=== PATIENT | female | born 1975 | race Two or more races ===

== ENCOUNTER 2020-07-28 12:52 | Outpatient (REF) | payer MEDICAID, SELFPAY | END 2020-07-28 12:53 | disposition home or self-care (01) | LOC: HO.LAB 12:52 | PROVIDERS: PCP Internal Medicine; Visit Provider Internal Medicine | DX: Z20.828 Contact with and (suspected) exposure to other viral communicable diseases (principal) | CPT/HCPCS: C9803; U0003 ==

== ENCOUNTER 2020-11-17 09:27 | Outpatient (REF) | payer MEDICAID, SELFPAY ==
[2020-11-17 10:45] LABS: MANUAL DIFF FLAG NO
[2020-11-17 10:53] LABS: Basophils Percent Auto 0.5 % (0-2); Eosinophils Absolute Auto 0.1 X10*3/uL (0.0-0.4); Hematocrit 44.6 % (37-47); Hemoglobin 14.5 g/dl (12.0-16.0); Imm Gran Abs Auto 0.01 X10*3/uL (0.00-0.03); Imm Gran Pct Auto 0.2 % (0.0-0.4); Lymphocytes Percent Auto 31.2 % (20-40); Mean Corpuscular HGB Conc 32.5 g/dl (31.0-35.0); Mean Corpuscular Hemoglobin 28.9 pg (27.0-33.0); Mean Platelet Volume 9.7 fL (9.4-12.3); Monocytes Absolute Auto 0.8 X10*3/uL (0.1-1.2); Monocytes Percent Auto 12.2 % (2-11); Neutrophils Absolute Auto 3.5 X10*3/uL (2.0-8.3); Neutrophils Percent Auto 53.9 % (45-73); Platelet Count 258 X10*3/uL (160-400); Red Blood Count 5.01 X10*6/uL (4.20-5.50); Red Cell Distribution Width 13.4 % (11.0-16.0); White Blood Count 6.5 X10*3/uL (4.8-10.8)
[2020-11-17 11:19] LABS: Alanine Aminotransferase 19 U/L (0-31); Albumin Level 4.3 g/dL (3.5-5.0); Alkaline Phosphatase 68 U/L (39-117); Aspartate Amino Transferase 19 U/L (5-31); Bilirubin Total 0.6 mg/dL (0.0-1.0); Blood Urea Nitrogen 20 mg/dL (9-16); C Reactive Protein 0.21 mg/dL (< or = 0.50); Calcium 8.9 mg/dL (8.4-10.2); Estimated Glomerular Filt Rate > 60; Glucose Random 91 mg/dL (60-115); Total Protein 6.6 g/dL (6.5-8.0)
[2020-11-17 11:31] LABS: Anion Gap 12 (12-20); Carbon Dioxide 28 mmol/L (22-29); Chloride 105 mmol/L (96-108); Potassium 4.6 mmol/L (3.3-5.1); Sodium 140 mmol/L (135-145)
[2020-11-17 11:58] LABS: Erythrocyte Sedimentation Rate 2 MM/HR (0-20)
== END 2020-11-17 09:28 | disposition home or self-care (01) ==
LOC: HO.LAB 09:27
PROVIDERS: PCP Internal Medicine; Visit Provider Student in an Organized Health Care Education/Training Program
DX: M05.9 Rheumatoid arthritis with rheumatoid factor, unspecified (principal); F17.210 Nicotine dependence, cigarettes, uncomplicated; Z79.899 Other long term (current) drug therapy
CPT/HCPCS: 36415; 80053; 85025; 85652; 86140; 99212

== ENCOUNTER 2021-05-31 08:59 | Outpatient (REF) | payer MEDICAID, SELFPAY ==
[2021-05-31 09:13] LABS: MANUAL DIFF FLAG NO
[2021-05-31 09:17] LABS: Basophils Percent Auto 0.4 % (0-2); Eosinophils Absolute Auto 0.2 X10*3/uL (0.0-0.4); Eosinophils Percent Auto 2.2 % (0-4); Hematocrit 44.7 % (37-47); Hemoglobin 14.6 g/dl (12.0-16.0); Imm Gran Abs Auto 0.02 X10*3/uL (0.00-0.03); Imm Gran Pct Auto 0.3 % (0.0-0.4); Lymphocytes Absolute Auto 1.8 X10*3/uL (1.2-4.9); Lymphocytes Percent Auto 24.7 % (20-40); Mean Corpuscular HGB Conc 32.7 g/dl (31.0-35.0); Mean Corpuscular Hemoglobin 28.8 pg (27.0-33.0); Mean Corpuscular Volume 88.2 fL (80-98); Mean Platelet Volume 9.2 fL (9.4-12.3); Monocytes Absolute Auto 0.8 X10*3/uL (0.1-1.2); Monocytes Percent Auto 11.4 % (2-11); Neutrophils Absolute Auto 4.5 X10*3/uL (2.0-8.3); Platelet Count 283 X10*3/uL (160-400); Red Blood Count 5.07 X10*6/uL (4.20-5.50); Red Cell Distribution Width 13.7 % (11.0-16.0); White Blood Count 7.3 X10*3/uL (4.8-10.8)
[2021-05-31 09:44] LABS: Alanine Aminotransferase 14 U/L (0-31); Albumin Level 4.2 g/dL (3.5-5.0); Alkaline Phosphatase 81 U/L (39-117); Anion Gap 10 (12-20); Aspartate Amino Transferase 17 U/L (5-31); Bilirubin Total 0.3 mg/dL (0.0-1.0); Blood Urea Nitrogen 14 mg/dL (9-16); C Reactive Protein 0.45 mg/dL (< or = 0.50); Calcium 9.6 mg/dL (8.4-10.2); Carbon Dioxide 29 mmol/L (22-29); Chloride 108 mmol/L (96-108); Estimated Glomerular Filt Rate 60; Glucose Random 94 mg/dL (60-115); Potassium 4.6 mmol/L (3.3-5.1); Sodium 142 mmol/L (135-145); Total Protein 6.6 g/dL (6.5-8.0)
[2021-05-31 10:43] LABS: Erythrocyte Sedimentation Rate 5 MM/HR (0-20)
== END 2021-05-31 09:00 | disposition home or self-care (01) ==
LOC: HO.LAB 08:59
PROVIDERS: PCP Internal Medicine; Visit Provider Student in an Organized Health Care Education/Training Program
DX: M05.9 Rheumatoid arthritis with rheumatoid factor, unspecified (principal); Z79.899 Other long term (current) drug therapy
CPT/HCPCS: 36415; 80053; 85025; 85652; 86140; 99212

== ENCOUNTER 2021-08-05 12:57 | Outpatient (REF) | payer MEDICAID, SELFPAY ==
[2021-08-05 13:06] LABS: MANUAL DIFF FLAG NO
[2021-08-05 13:51] LABS: Basophils Percent Auto 0.2 % (0-2); Eosinophils Absolute Auto 0.2 X10*3/uL (0.0-0.4); Eosinophils Percent Auto 1.9 % (0-4); Hematocrit 44.7 % (37.0-47.0); Hemoglobin 14.3 g/dl (12.0-16.0); Imm Gran Abs Auto 0.02 X10*3/uL (0.00-0.03); Imm Gran Pct Auto 0.2 % (0.0-0.4); Lymphocytes Absolute Auto 2.7 X10*3/uL (1.2-4.9); Lymphocytes Percent Auto 28.1 % (20-40); Mean Corpuscular Hemoglobin 29.1 pg (27.0-33.0); Mean Platelet Volume 9.6 fL (9.4-12.3); Monocytes Absolute Auto 0.7 X10*3/uL (0.1-1.2); Monocytes Percent Auto 7.4 % (2-11); Neutrophils Percent Auto 62.2 % (45-73); Platelet Count 283 X10*3/uL (160-400); Red Blood Count 4.91 X10*6/uL (4.20-5.50); Red Cell Distribution Width 14.5 % (11.0-16.0); White Blood Count 9.6 X10*3/uL (4.8-10.8)
[2021-08-05 14:22] LABS: Alanine Aminotransferase 24 U/L (0-31); Albumin Level 4.5 g/dL (3.5-5.0); Alkaline Phosphatase 83 U/L (39-117); Anion Gap 11 (12-20); Aspartate Amino Transferase 20 U/L (5-31); Bilirubin Total 0.4 mg/dL (0.0-1.0); Blood Urea Nitrogen 14 mg/dL (9-16); C Reactive Protein 0.17 mg/dL (< or = 0.50); Calcium 10.1 mg/dL (8.4-10.2); Carbon Dioxide 29 mmol/L (22-29); Chloride 107 mmol/L (96-108); Estimated Glomerular Filt Rate 58; Glucose Random 122 mg/dL (60-115); Potassium 4.6 mmol/L (3.3-5.1); Sodium 142 mmol/L (135-145); Total Protein 6.9 g/dL (6.5-8.0)
[2021-08-05 14:59] LABS: Erythrocyte Sedimentation Rate 2 MM/HR (0-20)
== END 2021-08-05 12:58 | disposition home or self-care (01) ==
LOC: HO.LAB 12:57
PROVIDERS: PCP Internal Medicine; Visit Provider Nurse Practitioner Family
DX: M05.9 Rheumatoid arthritis with rheumatoid factor, unspecified (principal)
CPT/HCPCS: 36415; 80053; 85025; 85652; 86140

== ENCOUNTER 2022-01-11 12:17 | Outpatient (REF) | payer MEDICAID, SELFPAY ==
[2022-01-11 12:31] LABS: MANUAL DIFF FLAG NO
[2022-01-11 12:54] LABS: Basophils Absolute Auto 0.1 X10*3/uL (0.0-0.2); Basophils Percent Auto 0.6 % (0-2); Eosinophils Absolute Auto 0.1 X10*3/uL (0.0-0.4); Eosinophils Percent Auto 1.6 % (0-4); Hematocrit 44.9 % (37.0-47.0); Hemoglobin 14.8 g/dl (12.0-16.0); Imm Gran Abs Auto 0.03 X10*3/uL (0.00-0.03); Imm Gran Pct Auto 0.4 % (0.0-0.4); Lymphocytes Absolute Auto 2.2 X10*3/uL (1.2-4.9); Lymphocytes Percent Auto 27.3 % (20-40); Mean Corpuscular Hemoglobin 29.4 pg (27.0-33.0); Mean Corpuscular Volume 89.1 fL (80.0-98.0); Mean Platelet Volume 9.6 fL (9.4-12.3); Monocytes Absolute Auto 0.9 X10*3/uL (0.1-1.2); Monocytes Percent Auto 10.9 % (2-11); Neutrophils Absolute Auto 4.7 x10*3/uL (2.0-8.3); Neutrophils Percent Auto 59.2 % (45-73); Platelet Count 281 X10*3/uL (160-400); Red Blood Count 5.04 X10*6/uL (4.20-5.50); Red Cell Distribution Width 14.1 % (11.0-16.0); White Blood Count 7.9 X10*3/uL (4.8-10.8)
[2022-01-11 13:24] LABS: Alanine Aminotransferase 20 U/L (0-31); Albumin Level 4.3 g/dL (3.5-5.0); Alkaline Phosphatase 84 U/L (39-117); Anion Gap 11 (12-20); Aspartate Amino Transferase 19 U/L (5-31); Bilirubin Total 0.6 mg/dL (0.0-1.0); Blood Urea Nitrogen 17 mg/dL (9-16); Calcium 9.7 mg/dL (8.4-10.2); Carbon Dioxide 27 mmol/L (22-29); Chloride 107 mmol/L (96-108); Cholesterol 120 mg/dL; Estimated Glomerular Filt Rate > 60; Glucose Random 93 mg/dL (60-115); HDL Cholesterol 51 mg/dL; LDL Cholesterol Calculated 50 mg/dl; Potassium 4.6 mmol/L (3.3-5.1); Sodium 140 mmol/L (135-145); Total Protein 6.7 g/dL (6.5-8.0); Triglycerides 96 mg/dL
[2022-01-11 13:39] LABS: Erythrocyte Sedimentation Rate 2 MM/HR (0-20)
[2022-01-11 13:45] LABS: Thyroid Stimulating Hormone 0.52 uIU/mL (0.32-4.0)
[2022-01-11 13:49] LABS: Appearance Urine CLEAR; Color Urine YELLOW; Glucose Urine UA NEG (NEG); Leukocyte Esterase Urine NEG (NEG); Nitrite Urine NEG (NEG); Specific Gravity - Urine 1.025 (1.005-1.025); UACC Culture Trigger NO; Urine Blood TRACE (NEG); Urine Ketones NEG (NEG); Urine Protein NEG (NEG-TRACE)
[2022-01-11 14:29] LABS: RBC Urine 0-2 /HPF (0); Squamous Epithelial Cell Urine TRACE /LPF; WBC Urine 0 /HPF (0-4)
== END 2022-01-11 12:18 | disposition home or self-care (01) ==
LOC: HO.LAB 12:17
PROVIDERS: PCP Internal Medicine; Visit Provider Internal Medicine
DX: J45.31 Mild persistent asthma with (acute) exacerbation (principal); M06.9 Rheumatoid arthritis, unspecified; J45.909 Unspecified asthma, uncomplicated; N30.00 Acute cystitis without hematuria; Z72.0 Tobacco use
CPT/HCPCS: 36415; 80053; 80061; 81001; 84443; 85025; 85652

== ENCOUNTER → 2022-01-31 13:38 | Outpatient (REF) | payer MEDICAID, SELFPAY ==
--- NOTE | ~2022-01-31 | XR_ITS ---
EXAMINATION: XR HAND, RIGHT CLINICAL INFORMATION: Rheumatoid arthritis, with positive rheumatoid factor. COMPARISON: None. TECHNIQUE: PA, lateral, and oblique views of the right hand. FINDINGS: Bony alignment and mineralization are normal. There is a slight ulnar minus variance. The proximal and distal carpal rows are intact. There are mild osteoarthritic changes of the third distal interphalangeal joint and of the second, third and fifth proximal interphalangeal joints, with peripheral osteophyte formation and periarticular calcifications. No fracture or dislocation is seen. There is no bony erosive change. The ulnar styloid appears intact. There is mild soft tissue swelling adjacent to the second and third proximal interphalangeal joints. No foreign body is seen. XR/XR hand LT min 3V IMPRESSION: Mild osteoarthritic changes are seen of the right fingers, as detailed. No abnormal bony erosive change is seen. There is no fracture or dislocation noted. EXAMINATION: XR HAND, LEFT CLINICAL INFORMATION: As above. COMPARISON: None. TECHNIQUE: PA, lateral, and oblique views of the left hand. FINDINGS: Bony alignment and mineralization are normal. There is a slight ulnar minus variance. The proximal and distal carpal rows are intact. There are mild osteoarthritic changes of the second, third and fifth distal interphalangeal joints and of the second through fourth proximal interphalangeal joints, with peripheral osteophyte formation and periarticular calcifications noted. No fracture or dislocation is seen. No bony erosive change is seen. The ulnar styloid is intact. There is mild soft tissue swelling adjacent to the second and third proximal interphalangeal joints. No foreign body is seen. IMPRESSION: There are mild osteoarthritic changes, as detailed. No abnormal bone erosion is seen. There is no fracture or dislocation
--- NOTE | ~2022-01-31 | XR_ITS ---
EXAMINATION: XR HAND, RIGHT CLINICAL INFORMATION: Rheumatoid arthritis, with positive rheumatoid factor. COMPARISON: None. TECHNIQUE: PA, lateral, and oblique views of the right hand. FINDINGS: Bony alignment and mineralization are normal. There is a slight ulnar minus variance. The proximal and distal carpal rows are intact. There are mild osteoarthritic changes of the third distal interphalangeal joint and of the second, third and fifth proximal interphalangeal joints, with peripheral osteophyte formation and periarticular calcifications. No fracture or dislocation is seen. There is no bony erosive change. The ulnar styloid appears intact. There is mild soft tissue swelling adjacent to the second and third proximal interphalangeal joints. No foreign body is seen. XR/XR hand RT min 3V IMPRESSION: Mild osteoarthritic changes are seen of the right fingers, as detailed. No abnormal bony erosive change is seen. There is no fracture or dislocation noted. EXAMINATION: XR HAND, LEFT CLINICAL INFORMATION: As above. COMPARISON: None. TECHNIQUE: PA, lateral, and oblique views of the left hand. FINDINGS: Bony alignment and mineralization are normal. There is a slight ulnar minus variance. The proximal and distal carpal rows are intact. There are mild osteoarthritic changes of the second, third and fifth distal interphalangeal joints and of the second through fourth proximal interphalangeal joints, with peripheral osteophyte formation and periarticular calcifications noted. No fracture or dislocation is seen. No bony erosive change is seen. The ulnar styloid is intact. There is mild soft tissue swelling adjacent to the second and third proximal interphalangeal joints. No foreign body is seen. IMPRESSION: There are mild osteoarthritic changes, as detailed. No abnormal bone erosion is seen. There is no fracture or dislocation
--- NOTE | 2022-01-31 13:53 | ECG_ITS ---
Test Reason : MANDI.1 Blood Pressure : / mmHG Vent. Rate : 056 BPM Atrial Rate : 056 BPM P-R Int : 142 ms QRS Dur : 082 ms QT Int : 434 ms P-R-T Axes : 068 066 058 degrees QTc Int : 418 ms Sinus bradycardia Otherwise normal ECG No previous ECGs available Referred By: Cassandra Haney Electronically Signed By:RICK SHANKAR MD
[2022-01-31 14:24] LABS: C Reactive Protein 0.12 mg/dL (< or = 0.50)
== END ==
LOC: HO.CARD 13:38
PROVIDERS: PCP Internal Medicine; Visit Provider Nurse Practitioner Family
DX: R00.1 Bradycardia, unspecified (principal); M05.9 Rheumatoid arthritis with rheumatoid factor, unspecified
CPT/HCPCS: 36415; 73130; 86140; 93005; 99212

== ENCOUNTER 2022-09-21 09:43 | Outpatient (REF) | payer MEDICAID, SELFPAY ==
--- NOTE | ~2022-09-21 | XR_ITS ---
EXAMINATION: XR HIP, LEFT CLINICAL INFORMATION: Pain COMPARISON: None TECHNIQUE: Two views of the left hip. FINDINGS: No acute fracture or dislocation. Joint spaces are maintained. Well corticated osseous fragment lateral to the greater tuberosity. XR/XR hip LT min 2V IMPRESSION: No acute fracture or dislocation. Well corticated osseous fragment lateral to the greater tuberosity could potentially reflect sequelae of remote avulsion injury.
[2022-09-21 10:50] LABS: MANUAL DIFF FLAG NO
[2022-09-21 12:07] LABS: Basophils Percent Auto 0.3 % (0-2); Eosinophils Absolute Auto 0.1 X10*3/uL (0.0-0.4); Eosinophils Percent Auto 1.4 % (0-4); Hematocrit 44.9 % (37.0-47.0); Hemoglobin 14.4 g/dl (12.0-16.0); Imm Gran Abs Auto 0.03 X10*3/uL (0.00-0.03); Imm Gran Pct Auto 0.3 % (0.0-0.4); Lymphocytes Absolute Auto 2.2 X10*3/uL (1.2-4.9); Lymphocytes Percent Auto 23.5 % (20-40); Mean Corpuscular HGB Conc 32.1 g/dl (31.0-35.0); Mean Corpuscular Hemoglobin 28.4 pg (27.0-33.0); Mean Corpuscular Volume 88.6 fL (80.0-98.0); Mean Platelet Volume 9.7 fL (9.4-12.3); Monocytes Percent Auto 10.7 % (2-11); Neutrophils Absolute Auto 5.9 x10*3/uL (2.0-8.3); Neutrophils Percent Auto 63.8 % (45-73); Platelet Count 281 X10*3/uL (160-400); Red Blood Count 5.07 X10*6/uL (4.20-5.50); Red Cell Distribution Width 14.2 % (11.0-16.0); White Blood Count 9.2 X10*3/uL (4.8-10.8)
[2022-09-21 13:21] LABS: Alanine Aminotransferase 11 U/L (0-31); Aspartate Amino Transferase 14 U/L (5-31); C Reactive Protein 0.27 mg/dL (< or = 0.50); Estimated Glomerular Filt Rate > 60
[2022-09-21 14:53] LABS: Erythrocyte Sedimentation Rate 2 MM/HR (0-20)
== END 2022-09-21 09:44 | disposition home or self-care (01) ==
LOC: HO.LAB 09:43
PROVIDERS: PCP Internal Medicine; Visit Provider Nurse Practitioner Family
DX: M05.9 Rheumatoid arthritis with rheumatoid factor, unspecified (principal); R00.1 Bradycardia, unspecified; M25.552 Pain in left hip; Z79.899 Other long term (current) drug therapy
CPT/HCPCS: 36415; 73502; 82565; 84450; 84460; 85025; 85652; 86140; 99212

== ENCOUNTER 2023-11-08 09:52 | Outpatient (REF) | payer MEDICAID, SELFPAY ==
[2023-11-08 10:00] LABS: MANUAL DIFF FLAG NO
[2023-11-08 10:27] LABS: Basophils Percent Auto 0.4 % (0-2); Eosinophils Absolute Auto 0.2 X10*3/uL (0.0-0.4); Hematocrit 46.2 % (37.0-47.0); Hemoglobin 15.4 g/dl (12.0-16.0); Imm Gran Abs Auto 0.02 X10*3/uL (0.00-0.03); Imm Gran Pct Auto 0.2 % (0.0-0.4); Lymphocytes Absolute Auto 2.3 X10*3/uL (1.2-4.9); Lymphocytes Percent Auto 27.2 % (20-40); Mean Corpuscular HGB Conc 33.3 g/dl (31.0-35.0); Mean Corpuscular Hemoglobin 28.6 pg (27.0-33.0); Mean Corpuscular Volume 85.9 fL (80.0-98.0); Mean Platelet Volume 9.2 fL (9.4-12.3); Monocytes Absolute Auto 0.7 X10*3/uL (0.1-1.2); Monocytes Percent Auto 8.3 % (2-11); Neutrophils Absolute Auto 5.3 x10*3/uL (2.0-8.3); Neutrophils Percent Auto 61.9 % (45-73); Platelet Count 305 X10*3/uL (160-400); Red Blood Count 5.38 X10*6/uL (4.20-5.50); Red Cell Distribution Width 13.7 % (11.0-16.0); White Blood Count 8.5 X10*3/uL (4.8-10.8)
[2023-11-08 11:15] LABS: Alanine Aminotransferase 14 U/L (0-31); Albumin Level 4.3 g/dL (3.5-5.0); Alkaline Phosphatase 100 U/L (39-117); Anion Gap 10 (12-20); Aspartate Amino Transferase 19 U/L (5-31); Bilirubin Total 0.4 mg/dL (0.0-1.0); Blood Urea Nitrogen 14 mg/dL (9-16); Calcium 9.6 mg/dL (8.4-10.2); Carbon Dioxide 25 mmol/L (22-29); Chloride 109 mmol/L (96-108); Cholesterol 127 mg/dL (<200); Estimated Glomerular Filt Rate > 60; Glucose Random 103 mg/dL (60-115); HDL Cholesterol 59 mg/dL (>40); LDL Cholesterol Calculated 54 mg/dL (<100); Potassium 4.1 mmol/L (3.3-5.1); Sodium 140 mmol/L (135-145); Triglycerides 74 mg/dL (<150)
[2023-11-10 23:08] LABS: TS Negative Control Passed; TS Panel A 0; TS Panel B 0; TS Positive Control Passed; TSpotTB Negative (Negative)
== END 2023-11-08 09:53 | disposition home or self-care (01) ==
LOC: HO.LAB 09:52
PROVIDERS: PCP Internal Medicine; Visit Provider Internal Medicine
DX: Z00.00 Encounter for general adult medical examination without abnormal findings (principal); Z11.1 Encounter for screening for respiratory tuberculosis; J45.909 Unspecified asthma, uncomplicated; M06.9 Rheumatoid arthritis, unspecified; Z72.0 Tobacco use
CPT/HCPCS: 36415; 80053; 80061; 85025; 86481

== ENCOUNTER 2023-11-10 09:33 | Outpatient (AMB) | payer MEDICAID, SELFPAY ==
[2023-11-10 09:35] VITALS: BP 122/60; PULSE 99; TEMP 36.1; O2SAT 97; BMI 24.2
--- NOTE | 2023-11-10 09:35 | MHC.OFFVIS ---
Intake Vital Signs 11/10/23 09:35 Height 5 ft 4 in Weight 140 lb 14.006 oz BMI 24.2 BP 122/60 Blood Pressure Location Rt brachial Position Sitting Pulse 99 Pulse Source Pulse Oximeter Temp 97 F Temp Source Skin Pulse Oximetry (%) 97 Oxygen Delivery Method Room Air Intake Visit Reasons: RA/CONFIRMED Intake Note: Patient last seen 09/21/22 by Medina, presents today for follow up. c/o generalized myalgias Nurse Specialist Required: No Accompanied by: Self / Same As Patient Allergies No Known Allergies Allergy (Verified 11/10/23 09:40) Medication List - Last Reconciled 11/10/23 by Krupa Chauhan, [employer]- albuterol sulfate 90 mcg/actuation 2 puffs inhalation Q6H PRN fluticasone propionate 110 mcg/actuation (Flovent HFA) 2 puffs inhalation BID folic acid 1 mg PO DAILY naproxen 500 mg PO BID prednisone orally 2 tablets per x 7 days 1 tablet per day for 14 days HPI HPI Comments History of Present Illness Details Ms. Serrano 48yoF is here to reestablish care for her CC+RA. She was started on MTX but says life basically got in the way and everything fell by the way side. She thinks she was not taking the medication incorrectly when she was and denies any side effects. she remembers that she took it for a short while. 09/2022 Mckenna: 47yoF presents for follow-up of seropositive rheumatoid arthritis (RF- CCP+). Last seen in January 2022. Patient was started on methotrexate 4 tabs weekly in February 2020. She states that she took the medication for a month, did not feel much difference so she discontinued it.? She was restarted on Methotrexate November 2020 due to pain and stiffness in her hands, mostly in the PIP joints bilaterally, with morning stiffness lasting 30 minutes and reported swelling. She took the medication for a few weeks then discontinued it. It was recommended she restart Methotrexate for slight synovitis and pain on exam in May 2021. Patient states that she did not take the methotrexate. She is not currently on medication for RA. Patient reports hand swelling and morning stiffness that lasts 5 minutes. She reports sticking of the left index finger which she states is not bothersome. She admits to pain across her DIPs and PIPs in both hands. She reports that her pain is worse with use. She states that she had her hand injected in the past and can not recall if it helped. She reports intense left hip pain x 3 days that started after playing with grandson, running with him while he was on a scooter and using the scooter herself. She denies any injury while playing with grandson and developed pain the next day. Her hip pain is worse with walking and sitting and is felt mostly in the groin. She denies pain prior to 3 days ago except for when she was 15 and jumped from a second floor of a building, she injured both of her hips during this fall. She states she had not tried stretching or heat over the last 3 days. She tried 2 tabs of advil with little effect. She admits to disrupted sleep and depression. She does not have a therapist or mental health provider. She states hat she has not seen anyone for depression before. Patient denies history of iritis, uveitis, inflammatory bowel disease, fever, rash, oral ulcers or Raynaud's. [facility] Medical History (Updated 11/10/23 @ 09:51 by Krupa Chauhan [facility]) Hypovitaminosis D Screening examination for infectious disease Ectopic Depression Fibromyalgia Asthma Rheumatoid arthritis Surgical History H/O laparoscopy Hx of tubal ligation Hx of section Family History Mother Arthritis Diabetes HTN (hypertension) Social History (Updated 11/10/23 @ 09:40 by GABBY Newberry) Household Members: Children Housing: Apartment Alcohol intake: never Patient Tobacco Use Status: Current everyday Tobacco user Cigarettes Per Day: 10 Years Smoked: 25 Substance Use Type: Marijuana Physical Exam Vital Signs: Last Vital Signs Temp 97 F 11/10/23 09:35 Pulse 99 11/10/23 09:35 BP 122/60 11/10/23 09:35 Pulse Ox 97 11/10/23 09:35 Oxygen Delivery Method Room Air 11/10/23 09:35 BMI result Body Mass Index 24.2 APPEARANCE: Patient in no acute distress EYES: no redness, pupils equal and reactive to light, eyelids normal EARS: External ear normal, canal clear and tympanic membrane normal. NOSE/SINUS: Airflow through both nares, no nasal discharge, no bleeding THROAT: Oral mucosa moist, no ulcerations NECK: No thyromegaly or masses, no adenopathy, trachea midline. HEART: Regular rhythm, bradycardic, S1-S2 heard, no murmurs, rubs or gallops. LUNG: Clear to auscultation, respiratory rate regular and nonlabored. ABD: Normal bowel sounds, no organomegaly, masses or tenderness. EXTREMITIES: No edema, no calf tenderness, normal peripheral pulses. NEURO: Oriented and alert x3. No focal weakness. Gait antalgic. SKIN: No inflammatory or neoplastic lesions. Normal color and turgor JOINT EXAM: Cervical Spine:? Full range of motion without pain; no tenderness. Thoracic Spine: No scoliosis.? No tenderness on palpation. Lumbar Spine: Alignment normal.? Pain with flexion and extension. Tenderness to palpation of the lumbar spine and spinal muscles. Hands: LEFT: Normal range of motion. Bony enlargement with tenderness at PIP 2 and 3. Trace swelling, increased warmth or erythema. Able to make a full fist but not tightly and has some weakness to client support administrator strength. No triggering or locking of fingers noted. RIGHT: Bony enlargement and tenderness to palpation of DIP 2 and PIP 2,3. mild erythema, swelling and increased warmth. Able to make a full fist but not tightly and has some weakness in client support administrator strength. No triggering or locking of fingers noted. Wrists: Normal pain-free range of motion without tenderness, swelling, increased warmth or erythema. Elbows: Normal pain-free range of motion with some tenderness, but no swelling, increased warmth or erythema. Shoulders:? Full range of motion without tenderness, swelling, increased warmth or erythema. Hips: LEFT: Pain that radiates to the groin with internal rotation, external rotation, abduction and adduction. No swelling, erythema, ecchymosis or increased warmth noted. Pain also with sitting and walking. RIGHT: Normal pain-free range of motion without tenderness, swelling, increased warmth or erythema. Hip bursa:No tenderness. Knees: LEFT: Normal normal pain-free range of motion without tenderness, swelling, increased warmth or erythema. RIGHT: Normal normal pain-free range of motion without tenderness, swelling, increased warmth or erythema. Ankles: Normal pain-free range of motion without tenderness, swelling, increased warmth or erythema. Feet: Normal pain-free range of motion without tenderness, swelling, increased warmth or erythema. Results Reviewed Results Reviewed: Laboratory Tests 01/02/20 01/02/20 01/02/20 09:23 09:23 09:23 WBC RBC Hgb Hct Plt Count ESR Sodium Potassium BUN Creatinine Random Glucose Calcium AST ALT C-Reactive Protein TSH Rheumatoid Factor < 15.0 Cycl Citrul Peptide IgG 21 H CHRISTEL Titer 1:80 H SS-A/Ro Antibody SS-B/La Antibody Sm (Mathew) Antibody SmRNP Antibodies Scl-70 Scleroderma Ab Double Strand DNA Ab Anti-Centromere Ab Complement C3 Complement C4 Lyme Disease Screen 02/10/20 02/10/20 01/11/22 10:02 10:02 12:30 WBC 7.9 RBC 5.04 Hgb 14.8 Hct 44.9 Plt Count 281 ESR Sodium Potassium BUN Creatinine Random Glucose Calcium AST ALT C-Reactive Protein TSH Rheumatoid Factor Cycl Citrul Peptide IgG CHRISTEL Titer SS-A/Ro Antibody <1.0 SS-B/La Antibody <1.0 Sm (Mathew) Antibody <1.0 SmRNP Antibodies <1.0 Scl-70 Scleroderma Ab <1.0 Double Strand DNA Ab 1 Anti-Centromere Ab <1.0 Complement C3 79 L Complement C4 20 Lyme Disease Screen <0.90 01/11/22 01/11/22 01/31/22 12:30 12:30 14:06 WBC RBC Hgb Hct Plt Count ESR 2 Sodium 140 Potassium 4.6 BUN 17 H Creatinine 0.95 Random Glucose 93 Calcium 9.7 AST 19 ALT 20 C-Reactive Protein 0.12 TSH 0.52 Rheumatoid Factor Cycl Citrul Peptide IgG CHRISTEL Titer SS-A/Ro Antibody SS-B/La Antibody Sm (Mathew) Antibody SmRNP Antibodies Scl-70 Scleroderma Ab Double Strand DNA Ab Anti-Centromere Ab Complement C3 Complement C4 Lyme Disease Screen 01/31/2022 EXAMINATION: XR HAND, RIGHT CLINICAL INFORMATION: Rheumatoid arthritis, with positive rheumatoid factor.? COMPARISON: None. TECHNIQUE: PA, lateral, and oblique views of the right hand. FINDINGS: Bony alignment and mineralization are normal. There is a slight ulnar minus variance. The proximal and distal carpal rows are intact. There are mild osteoarthritic changes of the third distal interphalangeal joint and of the second, third and fifth proximal interphalangeal joints, with peripheral osteophyte formation and periarticular calcifications. No fracture or dislocation is seen. There is no bony erosive change. The ulnar styloid appears intact. There is mild soft tissue swelling adjacent to the second and third proximal interphalangeal joints. No foreign body is seen. XR/XR hand RT min 3V IMPRESSION: Mild osteoarthritic changes are seen of the right fingers, as detailed. No abnormal bony erosive change is seen. There is no fracture or dislocation noted. ? ? EXAMINATION: XR HAND, LEFT ? CLINICAL INFORMATION: As above.? ? COMPARISON: None. ? TECHNIQUE: PA, lateral, and oblique views of the left hand. ? FINDINGS: Bony alignment and mineralization are normal. There is a slight ulnar minus variance. The proximal and distal carpal rows are intact. There are mild osteoarthritic changes of the second, third and fifth distal interphalangeal joints and of the second through fourth proximal interphalangeal joints, with peripheral osteophyte formation and periarticular calcifications noted. No fracture or dislocation is seen. No bony erosive change is seen. The ulnar styloid is intact. There is mild soft tissue swelling adjacent to the second and third proximal interphalangeal joints. No foreign body is seen.? ? IMPRESSION: There are mild osteoarthritic changes, as detailed. No abnormal bone erosion is seen. There is no fracture or dislocation Assessment & Plan Assessment & Plan (1) Seropositive rheumatoid arthritis: Code(s): M05.9 - Rheumatoid arthritis with rheumatoid factor, unspecified (2) Left hip pain: Code(s): M25.552 - Pain in left hip (3) Seropositive rheumatoid arthritis: Comment: patient with out active synovitis on exam September 2022 Code(s): M05.9 - Rheumatoid arthritis with rheumatoid factor, unspecified (4) Hypovitaminosis D: Code(s): E55.9 - Vitamin D deficiency, unspecified Plan Patient with seropositive rheumatoid arthritis (RF- CCP+). She is here for hand pain, swelling and warmth as seen on PE. Previous X-rays of bilateral hands and wrists with mild OA and chest x-ray were normal.? Most recent bilateral hand x-rays from 09/2022 showed degenerative changes, no erosions. Positive response to prednisone taper in the past. Was started on methotrexate in February 2020, November 2020 and May 2021. She self stopped the medication twice, and in prior visit notes it states as it did not improve her symptoms and did not restart it the third time . We will obtain labs and consider to start her on therapy at next visit. Orders: Orders C Reactive Protein Today M05.9 - Rheumatoid arthritis with rheumatoid factor, unspecified Immunoglobulins,IgG IgA IgM Today M05.9 - Rheumatoid arthritis with rheumatoid factor, unspecified Protein Electrophoresis, Serum Today M05.9 - Rheumatoid arthritis with rheumatoid factor, unspecified Hepatitis A,B,C Profile Today M05.9 - Rheumatoid arthritis with rheumatoid factor, unspecified, Z11.9 - Encounter for screening for infectious and parasitic diseases, unspecified Erythrocyte Sedimentation Rate Today M05.9 - Rheumatoid arthritis with rheumatoid factor, unspecified Creatine Kinase Total Today M05.9 - Rheumatoid arthritis with rheumatoid factor, unspecified Uric Acid Today M05.9 - Rheumatoid arthritis with rheumatoid factor, unspecified T Spot TB Today M05.9 - Rheumatoid arthritis with rheumatoid factor, unspecified, Z11.9 - Encounter for screening for infectious and parasitic diseases, unspecified Immunofixation Pnl, Serum Today M05.9 - Rheumatoid arthritis with rheumatoid factor, unspecified Vitamin D 25-OH (D2 and D3) Today E55.9 - Vitamin D deficiency, unspecified, M05.9 - Rheumatoid arthritis with rheumatoid factor, unspecified Medications: New prednisone orally 2 tablets per x 7 days 1 tablet per day for 14 days 30 tabs 0RF M05.9 - Rheumatoid arthritis with rheumatoid factor, unspecified Coding Level of Care Code Est Pt Level 4 (22547) Diagnoses Seropositive rheumatoid arthritis M05.9 Left hip pain M25.552 Hypovitaminosis D E55.9
== END 2023-11-10 10:06 | disposition home or self-care (01) ==
PROVIDERS: PCP Internal Medicine; Visit Provider Nurse Practitioner Family
DX: M05.79 Rheumatoid arthritis with rheumatoid factor of multiple sites without organ or systems involvement (principal); M25.552 Pain in left hip; E55.9 Vitamin D deficiency, unspecified
CPT/HCPCS: 99214

== ENCOUNTER → 2023-11-10 09:33 | Outpatient (BNVA) | payer MEDICAID, SELFPAY | PROVIDERS: PCP Internal Medicine; Visit Provider Nurse Practitioner Family | DX: M05.9 Rheumatoid arthritis with rheumatoid factor, unspecified (principal); M25.552 Pain in left hip; E55.9 Vitamin D deficiency, unspecified | CPT/HCPCS: 99212 ==

== ENCOUNTER 2023-11-10 10:10 | Outpatient (REF) | payer MEDICAID, SELFPAY ==
[2023-11-10 11:37] LABS: C Reactive Protein < 0.10 mg/dL (< or = 0.50); Uric Acid 3.7 mg/dL (2.4-5.7)
[2023-11-10 11:41] LABS: HBc Num1 0.07 S/CO (0.00-0.79); HBsAGNum1 0.36 S/CO (0.00-0.99); Hepatitis A Antibody IgM 0.18 Index (0-0.79); Hepatitis B Core Antibody Nonreactive (Nonreactive); Hepatitis B Surface Antigen Negative (Negative); ~HepC Num1 0.13 S/CO (0.00-0.79); ~Hepatitis A Antibody IgM Nonreactive (Nonreactive); ~Hepatitis B Surface Antibody NONREACTIVE (Nonreactive); ~Hepatitis C Antibody Nonreactive (Nonreactive)
[2023-11-10 12:18] LABS: Erythrocyte Sedimentation Rate 2 MM/HR (0-20)
[2023-11-12 21:54] LABS: TS Negative Control Passed; TS Panel A 1; TS Panel B 0; TS Positive Control Passed; TSpotTB Negative (Negative)
[2023-11-13 21:49] LABS: Prot Elec - Albumin 4.2 g/dL (3.8-4.8); Prot Elec - Alpha1 0.3 g/dL (0.2-0.3); Prot Elec - Alpha2 0.6 g/dL (0.5-0.9); Prot Elec - Beta 1 0.4 g/dL (0.4-0.6); Prot Elec - Beta 2 0.3 g/dL (0.2-0.5); Prot Elec - Gamma 0.8 g/dL (0.8-1.7); Prot Elec - Total Protein 6.5 g/dL (6.1-8.1)
[2023-11-14 13:20] LABS: Vitamin D 25-OH, D2 <4 ng/mL; Vitamin D 25-OH, D3 26 ng/mL; Vitamin D 25-OH, Total 26 ng/mL (30-100)
[2023-11-14 15:32] LABS: IgA 154 mg/dL (47-310); IgG 850 mg/dL (600-1640); IgM 80 mg/dL (50-300)
== END 2023-11-10 10:11 | disposition home or self-care (01) ==
LOC: HO.10HDL 10:10
PROVIDERS: Visit Provider Nurse Practitioner Family
DX: M05.9 Rheumatoid arthritis with rheumatoid factor, unspecified (principal); E55.9 Vitamin D deficiency, unspecified; Z11.9 Encounter for screening for infectious and parasitic diseases, unspecified
CPT/HCPCS: 36415; 82306; 82550; 82784; 84165; 84550; 85652; 86140; 86334; 86481; 86704; 86706; 86709; 86803; 87340; 99212

== ENCOUNTER 2023-11-24 11:28 | Outpatient (AMB) | payer MEDICAID, SELFPAY ==
--- NOTE | 2023-11-24 11:40 | MHC.OFFVIS ---
Vital Signs 11/24/23 11:46 Height 5 ft 4 in Weight 144 lb 6.444 oz BMI 24.8 BP 102/60 Blood Pressure Location Rt brachial Position Sitting Pulse 67 Pulse Source Pulse Oximeter Pulse Oximetry (%) 98 Oxygen Delivery Method Room Air Intake Visit Reasons: SeroPos RA/Do labs Intake Note: Patient last seen 11/10/23, presents today for follow up and test results. Reports worsening dm knee and dm hand pain. Magazine Writer Required: No Accompanied by: Self / Same As Patient Allergies No Known Allergies Allergy (Verified 11/24/23 11:46) HPI Comments Details: Ms. Serrano 48yoF is here to review labs and start treatment for her CC+RA. 11/10/2023 Visit: Ms. Serrano 48yoPedro is here to reestablish care for her CC+RA. She was started on MTX but says life basically got in the way and everything fell by the way side. She thinks she was not taking the medication incorrectly when she was and denies any side effects. she remembers that she took it for a short while. 09/2022 Mckenna: 47yoF presents for follow-up of seropositive rheumatoid arthritis (RF- CCP+). Last seen in January 2022. Patient was started on methotrexate 4 tabs weekly in February 2020. She states that she took the medication for a month, did not feel much difference so she discontinued it.? She was restarted on Methotrexate November 2020 due to pain and stiffness in her hands, mostly in the PIP joints bilaterally, with morning stiffness lasting 30 minutes and reported swelling. She took the medication for a few weeks then discontinued it. It was recommended she restart Methotrexate for slight synovitis and pain on exam in May 2021. Patient states that she did not take the methotrexate. She is not currently on medication for RA. Patient reports hand swelling and morning stiffness that lasts 5 minutes. She reports sticking of the left index finger which she states is not bothersome. She admits to pain across her DIPs and PIPs in both hands. She reports that her pain is worse with use. She states that she had her hand injected in the past and can not recall if it helped. She reports intense left hip pain x 3 days that started after playing with grandson, running with him while he was on a scooter and using the scooter herself. She denies any injury while playing with grandson and developed pain the next day. Her hip pain is worse with walking and sitting and is felt mostly in the groin. She denies pain prior to 3 days ago except for when she was 15 and jumped from a second floor of a building, she injured both of her hips during this fall. She states she had not tried stretching or heat over the last 3 days. She tried 2 tabs of advil with little effect. She admits to disrupted sleep and depression. She does not have a therapist or mental health provider. She states hat she has not seen anyone for depression before. Patient denies history of iritis, uveitis, inflammatory bowel disease, fever, rash, oral ulcers or Raynaud's. [facility] Medical History (Updated 11/24/23 @ 12:05 [facility] Long-term use of immunosuppressant medication Hypovitaminosis D Screening examination for infectious disease Ectopic Depression Fibromyalgia Asthma Rheumatoid arthritis Surgical History H/O laparoscopy Hx of tubal ligation Hx of section Family History Mother Arthritis Diabetes HTN (hypertension) Social History Household Members: Children Housing: Apartment Alcohol intake: never Patient Tobacco Use Status: Current everyday Tobacco user Cigarettes Per Day: 10 Years Smoked: 25 Substance Use Type: Marijuana Review of Systems Const All systems reviewed & are unremarkable except as noted in HPI and below Physical Exam Vital Signs: Last Vital Signs Pulse 67 11/24/23 11:46 BP 102/60 11/24/23 11:46 Pulse Ox 98 11/24/23 11:46 Oxygen Delivery Method Room Air 11/24/23 11:46 BMI result Body Mass Index 24.8 APPEARANCE: Patient in no acute distress EYES: no redness, pupils equal and reactive to light, eyelids normal EARS: External ear normal, canal clear and tympanic membrane normal. NOSE/SINUS: Airflow through both nares, no nasal discharge, no bleeding THROAT: Oral mucosa moist, no ulcerations NECK: No thyromegaly or masses, no adenopathy, trachea midline. HEART: Regular rhythm, bradycardic, S1-S2 heard, no murmurs, rubs or gallops. LUNG: Clear to auscultation, respiratory rate regular and nonlabored. ABD: Normal bowel sounds, no organomegaly, masses or tenderness. EXTREMITIES: No edema, no calf tenderness, normal peripheral pulses. NEURO: Oriented and alert x3. No focal weakness. Gait antalgic. SKIN: No inflammatory or neoplastic lesions. Normal color and turgor JOINT EXAM: Cervical Spine:? Full range of motion without pain; no tenderness. Thoracic Spine: No scoliosis.? No tenderness on palpation. Lumbar Spine: Alignment normal.? Pain with flexion and extension. Tenderness to palpation of the lumbar spine and spinal muscles. Hands: LEFT: Normal range of motion. Bony enlargement with tenderness at PIP 2 and 3. Trace swelling, increased warmth or erythema. Able to make a full fist but not tightly and has some weakness to wearing apparel assembler strength. No triggering or locking of fingers noted. RIGHT: Bony enlargement and tenderness to palpation of DIP 2 and PIP 2,3. mild erythema, swelling and increased warmth. Able to make a full fist but not tightly and has some weakness in wearing apparel assembler strength. No triggering or locking of fingers noted. Wrists: Normal pain-free range of motion without tenderness, swelling, increased warmth or erythema. Elbows: Normal pain-free range of motion with some tenderness, but no swelling, increased warmth or erythema. Shoulders:? Full range of motion without tenderness, swelling, increased warmth or erythema. Hips: LEFT: Pain that radiates to the groin with internal rotation, external rotation, abduction and adduction. No swelling, erythema, ecchymosis or increased warmth noted. Pain also with sitting and walking. RIGHT: Normal pain-free range of motion without tenderness, swelling, increased warmth or erythema. Hip bursa:No tenderness. Knees: LEFT: Normal normal pain-free range of motion without tenderness, swelling, increased warmth or erythema. RIGHT: Normal normal pain-free range of motion without tenderness, swelling, increased warmth or erythema. Ankles: Normal pain-free range of motion without tenderness, swelling, increased warmth or erythema. Feet: Normal pain-free range of motion without tenderness, swelling, increased warmth or erythema. Assessment & Plan Assessment & Plan (1) Hypovitaminosis D: Code(s): E55.9 - Vitamin D deficiency, unspecified Category: Medical (2) Seropositive rheumatoid arthritis: Comment: patient with out active synovitis on exam September 2022 Code(s): M05.9 - Rheumatoid arthritis with rheumatoid factor, unspecified Category: Medical (3) Long-term use of immunosuppressant medication: Code(s): Z79.60 - medical terminologist (current) use of unspecified immunomodulators and immunosuppressants Category: Medical Plan Patient with seropositive rheumatoid arthritis (RF- CCP+). She is here for hand pain, swelling and warmth as seen on PE. Previous X-rays of bilateral hands and wrists with mild OA and chest x-ray were normal.? Most recent bilateral hand x-rays from 09/2022 showed degenerative changes, no erosions. Positive response to prednisone taper in the past. Was started on methotrexate in February 2020, November 2020 and May 2021. She self stopped the medication twice, and in prior visit notes it states as it did not improve her symptoms and did not restart it the third time . #Seropositive RA: Swelling and tenderness with warmth to some hand IP joints on PE. ESR/CRP, IGs within normal range. CCP weakly positive; Uric acid WNL so less likely gout. Will start Methotrexate 15mg QW anf Folic Acid 1 mg QD. Start Prednisone bridge until MTX Ramps up. #Train Caller Use: Obtain CBC, CMP to monitor for cytopenias and toxicity. Discussed side effects to include mouth sores, N/V/D, headaches. Patient to stop medication in the event of a Fever, infection, surgery or [id number] wound. #Low Vitamin D; Start Vit franklin D cholecalciferol 50 mcg qd. Follow-up in 8 weeks 30 minutes spent reviewing chart, reviewing labs and discussing treatment plan and document Orders: Orders Comprehensive Met. Panel 11/24/23 Z79.60 - group home (current) use of unspecified immunomodulators and immunosuppressants, M05.9 - Rheumatoid arthritis with rheumatoid factor, unspecified C Reactive Protein 11/24/23 Z79.60 - group home (current) use of unspecified immunomodulators and immunosuppressants, M05.9 - Rheumatoid arthritis with rheumatoid factor, unspecified Complete Blood Count Auto Diff 11/24/23 Z79.60 - medical terminologist (current) use of unspecified immunomodulators and immunosuppressants, M05.9 - Rheumatoid arthritis with rheumatoid factor, unspecified Erythrocyte Sedimentation Rate 11/24/23 Z79.60 - group home (current) use of unspecified immunomodulators and immunosuppressants, M05.9 - Rheumatoid arthritis with rheumatoid factor, unspecified Medications: New methotrexate sodium 15 mg (6 x 2.5 mg) PO QWEEK 72 tabs 0RF M05.9 - Rheumatoid arthritis with rheumatoid factor, unspecified folic acid 1 mg PO DAILY 90 tabs 2RF Z79.60 - medical terminologist (current) use of unspecified immunomodulators and immunosuppressants Changed From prednisone orally 2 tablets per x 7 days 1 tablet per day for 14 days 30 tabs 0RF M05.9 - Rheumatoid arthritis with rheumatoid factor, unspecified To prednisone orally 2 tablets per x 14 days 1 tablet per day for 14 days 45 tabs 0RF M05.9 - Rheumatoid arthritis with rheumatoid factor, unspecified Coding Level of Care Code Est Pt Level 4 (39132) Complex EM visit Add On G2211 Diagnoses Hypovitaminosis D E55.9 Seropositive rheumatoid arthritis M05.9 Long-term use of immunosuppressant medication Z79.60 Time Spent (min) 30 Comment
[2023-11-24 11:46] VITALS: BP 102/60; PULSE 67; O2SAT 98; BMI 24.8
== END 2023-11-24 12:07 | disposition home or self-care (01) ==
PROVIDERS: PCP Internal Medicine; Visit Provider Nurse Practitioner Family
DX: M05.79 Rheumatoid arthritis with rheumatoid factor of multiple sites without organ or systems involvement (principal); E55.9 Vitamin D deficiency, unspecified; Z79.60 Long term (current) use of unspecified immunomodulators and immunosuppressants
CPT/HCPCS: 99214; G2211

== ENCOUNTER → 2023-11-24 11:28 | Outpatient (BNVA) | payer MEDICAID, SELFPAY | PROVIDERS: PCP Internal Medicine; Visit Provider Nurse Practitioner Family | DX: M05.9 Rheumatoid arthritis with rheumatoid factor, unspecified (principal); E55.9 Vitamin D deficiency, unspecified; Z79.60 Long term (current) use of unspecified immunomodulators and immunosuppressants | CPT/HCPCS: 99212 ==

== ENCOUNTER 2024-01-16 11:47 | Outpatient (REF) | payer MEDICAID, SELFPAY ==
--- NOTE | ~2024-01-16 | XR_ITS ---
EXAMINATION: XR SACRUM AND COCCYX CLINICAL INFORMATION: Sacrococcygeal pain COMPARISON: Hip radiographs same date TECHNIQUE: 2 views of the sacrum and 2 views of the coccyx were obtained. FINDINGS: There are no fractures. No bone, joint or soft tissue abnormality is demonstrated. The SI joints appear symmetric. XR/XR sacrum coccyx min 2V IMPRESSION: Unremarkable examination.
--- NOTE | ~2024-01-16 | XR_ITS ---
EXAMINATION: XR BILATERAL HIPS WITH AP PELVIS CLINICAL INFORMATION: Hip pain COMPARISON: 09/21/2022 TECHNIQUE: AP view of the pelvis and single views of each hip were obtained. FINDINGS: No fracture. Hip joint spaces are maintained. Alignment is anatomic. Sacroiliac joints and pubic symphysis are normal. No abnormal soft tissue calcifications. Slight deformity to the left superior pubic ramus appears chronic. XR/XR hips [place] min 3V IMPRESSION: Normal pelvis and hips.
[2024-01-16 12:46] LABS: Basophils Percent Auto 0.4 % (0-2); Eosinophils Absolute Auto 0.1 X10*3/uL (0.0-0.4); Eosinophils Percent Auto 1.3 % (0-4); Hematocrit 45.6 % (37.0-47.0); Hemoglobin 14.7 g/dl (12.0-16.0); Imm Gran Abs Auto 0.03 X10*3/uL (0.00-0.03); Imm Gran Pct Auto 0.3 % (0.0-0.4); Lymphocytes Absolute Auto 2.3 X10*3/uL (1.2-4.9); Lymphocytes Percent Auto 23.8 % (20-40); MANUAL DIFF FLAG NO; Mean Corpuscular HGB Conc 32.2 g/dl (31.0-35.0); Mean Corpuscular Hemoglobin 28.9 pg (27.0-33.0); Mean Corpuscular Volume 89.6 fL (80.0-98.0); Mean Platelet Volume 9.4 fL (9.4-12.3); Monocytes Percent Auto 10.9 % (2-11); Neutrophils Percent Auto 63.3 % (45-73); Platelet Count 303 X10*3/uL (160-400); Red Blood Count 5.09 X10*6/uL (4.20-5.50); Red Cell Distribution Width 14.8 % (11.0-16.0); White Blood Count 9.5 X10*3/uL (4.8-10.8)
[2024-01-16 13:33] LABS: Erythrocyte Sedimentation Rate 6 MM/HR (0-20)
[2024-01-16 13:39] LABS: Alanine Aminotransferase 11 U/L (0-31); Albumin Level 4.6 g/dL (3.5-5.0); Alkaline Phosphatase 94 U/L (39-117); Anion Gap 13 (12-20); Aspartate Amino Transferase 15 U/L (5-31); Bilirubin Total 0.5 mg/dL (0.0-1.0); Blood Urea Nitrogen 14 mg/dL (9-16); C Reactive Protein 0.95 mg/dL (< or = 0.50); Calcium 10.3 mg/dL (8.4-10.2); Carbon Dioxide 29 mmol/L (22-29); Chloride 107 mmol/L (96-108); Estimated Glomerular Filt Rate > 60; Glucose Random 97 mg/dL (60-115); Potassium 4.6 mmol/L (3.3-5.1); Sodium 144 mmol/L (135-145); Total Protein 7.2 g/dL (6.5-8.0)
[2024-01-19 15:34] LABS: Cyclic Citrullinated Peptide <16 UNITS
== END 2024-01-16 11:48 | disposition home or self-care (01) ==
LOC: HO.XRAY 11:47
PROVIDERS: Absent Provider Internal Medicine; PCP Internal Medicine; Visit Provider Nurse Practitioner Family
DX: M05.9 Rheumatoid arthritis with rheumatoid factor, unspecified (principal); M25.552 Pain in left hip; M25.551 Pain in right hip; M53.3 Sacrococcygeal disorders, not elsewhere classified; Z79.60 Long term (current) use of unspecified immunomodulators and immunosuppressants
CPT/HCPCS: 36415; 72220; 73522; 80053; 85025; 85652; 86140; 86200

== ENCOUNTER 2024-10-29 08:33 | Outpatient (REF) | payer MEDICAID, SELFPAY ==
[2024-10-29 08:46] LABS: MANUAL DIFF FLAG NO
[2024-10-29 09:35] LABS: Basophils Absolute Auto 0.1 X10*3/uL (0.0-0.2); Basophils Percent Auto 0.7 % (0-2); Eosinophils Absolute Auto 0.2 X10*3/uL (0.0-0.4); Eosinophils Percent Auto 2.4 % (0-4); Hematocrit 47.3 % (37.0-47.0); Hemoglobin 15.4 g/dl (12.0-16.0); Imm Gran Abs Auto 0.01 X10*3/uL (0.00-0.03); Imm Gran Pct Auto 0.1 % (0.0-0.4); Lymphocytes Absolute Auto 2.2 X10*3/uL (1.2-4.9); Lymphocytes Percent Auto 29.7 % (20-40); Mean Corpuscular HGB Conc 32.6 g/dl (31.0-35.0); Mean Corpuscular Hemoglobin 28.7 pg (27.0-33.0); Mean Corpuscular Volume 88.2 fL (80.0-98.0); Mean Platelet Volume 9.6 fL (9.4-12.3); Monocytes Absolute Auto 0.7 X10*3/uL (0.1-1.2); Monocytes Percent Auto 8.8 % (2-11); Neutrophils Absolute Auto 4.3 x10*3/uL (2.0-8.3); Neutrophils Percent Auto 58.3 % (45-73); Platelet Count 271 X10*3/uL (160-400); Red Blood Count 5.36 X10*6/uL (4.20-5.50); Red Cell Distribution Width 13.7 % (11.0-16.0); White Blood Count 7.4 X10*3/uL (4.8-10.8)
[2024-10-29 09:56] LABS: Alanine Aminotransferase 24 U/L (0-31); Albumin Level 4.2 g/dL (3.5-5.0); Alkaline Phosphatase 99 U/L (39-117); Anion Gap 9 (12-20); Aspartate Amino Transferase 24 U/L (5-31); Bilirubin Total 0.3 mg/dL (0.0-1.0); Blood Urea Nitrogen 15 mg/dL (9-16); Calcium 8.9 mg/dL (8.4-10.2); Carbon Dioxide 26 mmol/L (22-29); Chloride 113 mmol/L (96-108); Cholesterol 130 mg/dL (<200); Estimated Glomerular Filt Rate > 60; Glucose Random 102 mg/dL (60-115); HDL Cholesterol 62 mg/dL (>40); LDL Cholesterol Calculated 55 mg/dL (<100); Potassium 4.4 mmol/L (3.3-5.1); Sodium 144 mmol/L (135-145); Total Protein 6.9 g/dL (6.5-8.0); Triglycerides 69 mg/dL (<150)
[2024-10-29 10:11] LABS: Erythrocyte Sedimentation Rate 2 MM/HR (0-20)
[2024-10-29 10:24] LABS: Rheumatoid Factor < 13.0 IU/mL (<15.0)
[2024-10-31 07:14] LABS: Cyclic Citrullinated Peptide 19 UNITS
== END 2024-10-29 08:34 | disposition home or self-care (01) ==
LOC: HO.LAB 08:33
PROVIDERS: PCP Internal Medicine; Visit Provider Internal Medicine
DX: Z00.00 Encounter for general adult medical examination without abnormal findings (principal); F32.9 Major depressive disorder, single episode, unspecified; M06.9 Rheumatoid arthritis, unspecified; Z72.0 Tobacco use
CPT/HCPCS: 36415; 80053; 80061; 85025; 85652; 86200; 86431

== ENCOUNTER 2025-03-18 08:26 | Outpatient (REF) | payer MEDICAID, SELFPAY ==
[2025-03-18 13:13] LABS: MANUAL DIFF FLAG NO
[2025-03-18 13:15] LABS: Appearance Urine Cloudy; Glucose Urine UA Negative (Negative); PH 5.5 (5.0-9.0); Specific Gravity - Urine 1.020 (1.005-1.025); UMIC TRIGGER UACC YES
[2025-03-18 13:51] LABS: Hematocrit 45.1 % (37.0-47.0); Hemoglobin 14.2 g/dl (12.0-16.0); Imm Gran Abs Auto 0.03 X10*3/uL (0.00-0.03); Imm Gran Pct Auto 0.4 % (0.0-0.4); Lymphocytes Absolute Auto 1.8 X10*3/uL (1.2-4.9); Mean Corpuscular HGB Conc 31.5 g/dl (31.0-35.0); Mean Corpuscular Hemoglobin 27.8 pg (27.0-33.0); Mean Corpuscular Volume 88.4 fL (80.0-98.0); NRBC Abs Auto 0.000 X10*3/uL (0.0-0.012); NRBC Pct Auto 0.0 /100WBC (0.0-0.2); Platelet Count 283 X10*3/uL (160-400); Red Blood Count 5.10 X10*6/uL (4.20-5.50); White Blood Count 7.7 X10*3/uL (4.8-10.8)
[2025-03-18 14:01] LABS: Alanine Aminotransferase 16 U/L (0-31); Aspartate Amino Transferase 24 U/L (5-31); Estimated Glomerular Filt Rate > 60
[2025-03-18 14:47] LABS: Protein/Creatinine Ratio, Ur 0.08 (<0.2); Total Protein Urine Random 12 mg/dL (<12)
[2025-03-19 23:09] LABS: SM/Ribonucleoprotein Ab <1.0 NEG AI (<1.0 NEG); Smith Protein <1.0 NEG AI (<1.0 NEG)
== END 2025-03-18 08:27 | disposition home or self-care (01) ==
LOC: HO.HKASLDS 08:26
PROVIDERS: PCP Internal Medicine; Visit Provider Internal Medicine Rheumatology
DX: M17.0 Bilateral primary osteoarthritis of knee (principal); M05.9 Rheumatoid arthritis with rheumatoid factor, unspecified; M77.11 Lateral epicondylitis, right elbow; M77.02 Medial epicondylitis, left elbow; M65.322 Trigger finger, left index finger; R76.8 Other specified abnormal immunological findings in serum; M25.561 Pain in right knee; R76.0 Raised antibody titer; Z79.1 Long term (current) use of non-steroidal anti-inflammatories (NSAID)
CPT/HCPCS: 36415; 81001; 82565; 82570; 84156; 84450; 84460; 85025; 85652; 86140; 86160; 86225; 86235; 86431; 99212

== ENCOUNTER 2025-03-18 08:26 | Outpatient (AMB) | payer MEDICAID, SELFPAY ==
--- NOTE | 2025-03-18 08:29 | MHC.OFFVIS ---
Vital Signs 03/18/25 08:30 Height 5 ft 4.8 in Weight 136 lb 4 oz BMI 22.8 BP 120/80 Blood Pressure Location Lt brachial Position Sitting Pulse 52 Pulse Oximetry (%) 99 Oxygen Delivery Method Room Air Intake Visit Reasons: RA Intake Note: Patient presents for Hypovitaminosis. Accompanied by: self Allergies No Known Allergies Allergy (Verified 03/18/25 08:30) HPI HPI RA: Details: She has constant pain in hands. Left 2nd fingers triggering. In the past she tried meloxicam without benefit. She was on methotrexate but took all the pills all at once. She did not follow up with Rheumatology after appointment in November 2023. MS 3 minutes Left 2nd finger and left elbow gets stuck. She has a lot of pain in her forearms. R knee anterior pain with flexion. She has difficulty getting up. [facility] Medical History Long-term use of immunosuppressant medication Hypovitaminosis D Screening examination for infectious disease Ectopic Depression Fibromyalgia Asthma Rheumatoid arthritis Surgical History H/O laparoscopy Hx of tubal ligation Hx of section Family History Mother Arthritis Diabetes HTN (hypertension) Social History Household Members: Children Housing: Apartment Alcohol intake: never Patient Tobacco Use Status: Current everyday Tobacco user Cigarettes Per Day: 10 Years Smoked: 25 Substance Use Type: Marijuana Physical Exam Vital Signs: Last Vital Signs Pulse 52 03/18/25 08:30 BP 120/80 03/18/25 08:30 Pulse Ox 99 03/18/25 08:30 Oxygen Delivery Method Room Air 03/18/25 08:30 BMI result Body Mass Index 22.8 Const Other: General: Comfortable CVS: RRR Respiratory: clear to auscultation bilaterally. Good respiratory effort Skin: No lesions seen MSK: Tender to palpate right 2nd and 5th PIP with Enoc's nodes present. She also has multiple Heberden nodes. Tender left 2nd to 3rd MCP, PIPs. No synovitis. Tender left medial epicondyle with pain with resisted wrist flexion. Tender right lateral epicondyle without pain with resisted wrist extension. Normal range of motion of upper extremities and lower extremities. Assessment & Plan Assessment & Plan (1) Polyarthritis: Comment: On exam she does not have synovitis but has clinical findings of osteoarthritis. She has multiple small joints that are tender. I will further pursue inflammatory arthritis workup with labs and x-rays. Rheumatology history: She was treated for rheumatoid arthritis presenting with synovitis in September 2022 with methotrexate 11/2023 but patient took all the pills at once. Lost to follow up. Labs from 2019 reveal low titer positive CHRISTEL 1:80 and low C3. Anti CCP antibody negative. Code(s): M13.0 - Polyarthritis, unspecified Category: Medical Plan: Labs ordered Bilateral hands and feet x-ray ordered Start celecoxib 200 mg twice a day Return to clinic in 3-4 months (2) Positive CHRISTEL (antinuclear antibody): Code(s): R76.8 - Other specified abnormal immunological findings in serum Category: Medical Plan: See above (3) Trigger finger, left index finger: Code(s): M65.322 - Trigger finger, left index finger Category: Medical Plan: OT ordered with splinting Return to clinic in 3-4 months (4) Medial epicondylitis, left elbow: Code(s): M77.02 - Medial epicondylitis, left elbow Category: Medical Plan: Elbow support band prescription given to patient OT ordered Start celecoxib 200 mg twice a day Return to clinic in 3-4 months (5) Right lateral epicondylitis: Code(s): M77.11 - Lateral epicondylitis, right elbow Category: Medical Plan: Elbow support band prescription given to patient OT ordered Start celecoxib 200 mg twice a day Return to clinic in 3-4 months Orders: Orders XR knee RT 2V Today M17.0 - Bilateral primary osteoarthritis of knee OT Evaluation and Treatment Today M65.322 - Trigger finger, left index finger, M77.02 - Medial epicondylitis, left elbow, M77.11 - Lateral epicondylitis, right elbow XR Foot Eder 3V Today M05.9 - Rheumatoid arthritis with rheumatoid factor, unspecified Complete Blood Count Auto Diff Today R76.0 - Raised antibody titer, R76.8 - Other specified abnormal immunological findings in serum UA ClnCatch+Micro w/rflx Cult Today R76.0 - Raised antibody titer, R76.8 - Other specified abnormal immunological findings in serum Protein Creatinine Ratio, Ur Today R76.0 - Raised antibody titer, R76.8 - Other specified abnormal immunological findings in serum Erythrocyte Sedimentation Rate Today R76.0 - Raised antibody titer, R76.8 - Other specified abnormal immunological findings in serum Complement C3 Today R76.0 - Raised antibody titer, R76.8 - Other specified abnormal immunological findings in serum Sm Sm/ELECTRICAL REPAIRER Antibodies Today R76.0 - Raised antibody titer, R76.8 - Other specified abnormal immunological findings in serum XR Hand Bilat min 3v Today M05.9 - Rheumatoid arthritis with rheumatoid factor, unspecified Alanine Aminotransferase Today Z79.1 - senior care (current) use of non-steroidal anti-inflammatories (NSAID) Aspartate Amino Transferase Today Z79.1 - senior care (current) use of non-steroidal anti-inflammatories (NSAID) Creatinine Today Z79.1 - buttermaker continuous churn (current) use of non-steroidal anti-inflammatories (NSAID) PT Evaluation and Treatment Today M25.561 - Pain in right knee Rheumatoid Factor Today R76.8 - Other specified abnormal immunological findings in serum C Reactive Protein Today R76.0 - Raised antibody titer, R76.8 - Other specified abnormal immunological findings in serum Anti DNA DS Antibody Today R76.0 - Raised antibody titer, R76.8 - Other specified abnormal immunological findings in serum Complement C4 Today R76.0 - Raised antibody titer, R76.8 - Other specified abnormal immunological findings in serum Medications: New celecoxib Take with food 200 mg PO BID 60 caps 2RF arm brace Bilateral elbow support band Dx: left lateral epicondylitis, right medial epicondylitis 2 ea 0RF Coding Level of Care Code Est Pt Level 4 (77817) Complex EM visit Add On G2211 Diagnoses Polyarthritis M13.0 Positive CHRISTEL (antinuclear antibody) R76.8 Trigger finger, left index finger M65.322 Medial epicondylitis, left elbow M77.02 Right lateral epicondylitis M77.11 Time Spent (min) 30
[2025-03-18 08:30] VITALS: BP 120/80; PULSE 52; O2SAT 99; BMI 22.8
--- OUTSIDE RECORDS SUMMARY | 2025-03-18 08:36 | XMS_ITS | Clinical Summary ---
Author Organization [facility] Address [address] [place] [address] Phone Care Team Providers Care Wood Boat Builder Supervisor Name Role Phone Arleen Rosas MD Primary Care Provider [phone] Social History Tobacco Use Types Packs/Day Years Used Date Smoking Tobacco: Never Assessed Comments No Sex and Gender Information Value Date Recorded Sex Assigned at Not on file Legal Sex Female 12:47 PM EST Gender Identity Not on file Sexual Orientation Not on file Obstetrics History Para Term AB IAB SAB Ectopic Multiple Livin g Live Births 4 Last Filed Vital Signs Vital Sign Reading Time Taken Comments Blood Pressure - - Pulse - - Temperature - - Respiratory Rate - - Oxygen Saturation - - Inhaled Oxygen Concentration - - Weight 62.1 kg (137 lb) 07/08/2024 8:46 AM EST Height 162.6 cm (5' 4 ) 07/08/2024 8:46 AM EST Body Mass Index 23.52 07/08/2024 8:46 AM EST Plan of Treatment Health Maintenance Due Date Last Done Comments DTaP,Tdap,and Td Vaccines (1 - Tdap) 1992 Hepatitis B Vaccines (1 of 3 - 19+ 3-dose series) 1992 Pneumococcal Vaccine: 50+ Years (1 of 2 - PCV) 1992 Cervical Cancer Screening: Pap Smear 1994 Colorectal Cancer Screening: Colonoscopy 07/12/2022 HIV Screening 07/12/2022 Hepatitis C Screening 07/12/2022 Social Influencers of Health Screening 07/12/2022 Zoster Vaccines (1 of 2) 2023 COVID-19 Vaccine ( - 2024-25 season) 2024 Depression Screening 08/14/2024 Influenza Vaccine (#1) 2025 Breast Cancer Screening 07/08/2026 07/08/20, 07/05/2023, 03/12/2022, Additional history exists HIB Vaccines Aged Out No longer eligi ble based on patient's age to complete this topic HPV Vaccines Aged Out No longer eligi ble based on patient's age to complete this topic Hepatitis A Vaccines Aged Out No long er eligible based on patient's age to complete this topic IPV Vaccines Aged Out No longer eligi ble based on patient's age to complete this topic MMR Vaccines Aged Out No longer eligi ble based on patient's age to complete this topic Meningococcal ACWY Vaccine Aged Out N o longer eligible based on patient's age to complete this topic Meningococcal B Vaccine Aged Out No l onger eligible based on patient's age to complete this topic RSV Immunization Patients Under 20 months Aged Out No longer eligible based on patient's age to complete this topic Varicella Vaccines Aged Out No longer eligible based on patient's age to complete this topic Procedures Procedure Name Priority Date/Time Associated Diagnosis Comments MG MAMMO DIGITAL SCREENING W RADHA BILAT Routine 07/08/2024 9:02 AM EST Encounter for screening mammogram for breast cancer from Last 3 Months or Most Recently Relevant to Health Maintenance Results * MG Mammo Digital Screening w Radha bilat (07/08/2024 9:02 AM EST) Anatomical Region Laterality Modality Breast Bilateral Mammography 07/08/2024 12:5 2 PM EST Impressions 07/08/2024 12:53 PM EST Stable mammographic appearance of the breasts. No evidence of malignancy is seen. A negative mammogram in the presence of a clinically suspicious palpable abnormality does not preclude the possibility of malignancy or alter the indications for biopsy. BI-RADS CATEGORY: 1 - NEGATIVE RECOMMENDATION: Screening bilateral mammogram is recommended in 1 year. Mammo Location: [facility], [address] [place] [address], [id number], . -------- FINAL REPORT -------- Dictated By: Vickie Gandara Dictated Date: 07/08/2024 12:52 ET Assigned Physician: Vickie Gandara Reviewed and Electronically Signed By: Vickie Gandara Signed Date: 07/08/2024 12:53 ET Workstation ID: [id number] Transcribed By: Self Edit Transcribed Date: 07/08/2024 12:52 ET Narrative 07/08/2024 12:53 PM EST HISTORY: Screening. COMPARISON: 07/05/23, 03/12/22, 12/04/20 TECHNIQUE: Bilateral digital breast tomosynthesis was performed in the CC and MLO projections. Computer aided detection with iCAD ProFound AI 3D 3.1 was employed. BREAST DENSITY: B - There are scattered areas of fibroglandular density. FINDINGS: No suspicious masses, grouped microcalcifications, or areas of architectural distortion are seen. The skin and vascularity are unremarkable. Procedure Note Vickie Gandara MD - 07/08/2024 HISTORY: Screening. COMPARISON: 07/05/23, 03/12/22, 12/04/20 TECHNIQUE: Bilateral digital breast tomosynthesis was performed in the CCand MLO projections. Computer aided detection with iCAD ProFound AI 3D 3.1was employed. BREAST DENSITY: B - There are scattered areas of fibroglandular density. FINDINGS: No suspicious masses, grouped microcalcifications, or areas ofarchitectural distortion are seen. The skin and vascularity areunremarkable. IMPRESSION: Stable mammographic appearance of the breasts. No evidence of malignancyis seen. A negative mammogram in the presence of a clinically suspicious palpableabnormality does not preclude the possibility of malignancy or alter theindications for biopsy. BI-RADS CATEGORY: 1 - NEGATIVE RECOMMENDATION: Screening bilateral mammogram is recommended in 1 year. Mammo Location: [facility], [address] [place] [address], [id number], . -------- FINAL REPORT -------- Dictated By: Vickie Gandara Dictated Date: 07/08/2024 12:52 ET Assigned Physician: Vickie Gandara Reviewed and Electronically Signed By: Vickie Gandara Signed Date: 07/08/2024 12:53 ET Workstation ID: [id number] Transcribed By: Self Edit Transcribed Date: 07/08/2024 12:52 ET us Self Referral Sppl IMG BI PROCEDURES Final Resul t from Last 3 Months or Most Recently Relevant to Health Maintenance Insurance MEDICAID - [place] Care Teams Wood Boat Builder Supervisor Relationship Specialty Start Date End Date Arleen Rosas MD [address] [place] [address] [place] [id number] PCP - General Internal Medicine 07/08/24
== END 2025-03-18 09:09 | disposition home or self-care (01) ==
PROVIDERS: PCP Internal Medicine; Visit Provider Internal Medicine Rheumatology
DX: M13.0 Polyarthritis, unspecified (principal); R76.8 Other specified abnormal immunological findings in serum; M65.322 Trigger finger, left index finger; M77.02 Medial epicondylitis, left elbow; M77.11 Lateral epicondylitis, right elbow
CPT/HCPCS: 99214

== ENCOUNTER 2025-03-18 11:40 | Outpatient (REF) | payer MEDICAID, SELFPAY ==
--- NOTE | ~2025-03-18 | XR_ITS ---
Exam: Three-view bilateral feet x-rays INDICATION: Rheumatoid arthritis positive RF factor Prior: None FINDINGS: Left foot: There is a small nodule in the lateral aspect of the neck of the fifth metatarsal with sclerotic margin that could represent chronic erosion. There is a cystlike lucency in the central aspect of navicular bone was visible on the oblique view. No other abnormalities are seen. Right foot: There is loss of the cortical white line involving the far medial margin of the fourth metatarsal head and possibly the fifth. There is possible mild marginal erosion involving the lateral fourth proximal phalanx head. There are no other areas of concern. XR/XR Foot Eder 3V IMPRESSION: Left foot: Suspected chronic erosion/remission involving the lateral margin of the fifth metatarsal head. Right foot: Possible active erosions involving medial fourth and fifth metatarsal heads and lateral fourth proximal phalanx head. Electronically signed by: Ramon Van MD 03/18/2025 12:23 PM EDT
--- NOTE | ~2025-03-18 | XR_ITS ---
Exam: Three-view bilateral hands. INDICATION: Rheumatoid arthritis TECHNIQUE: AP, ball-catcher's, and lateral view x-rays of the hands Prior: January 31 2022 FINDINGS: Left hand: No convincing erosive changes are present. There are mild changes of osteoarthritis involving DIP and PIP joints and IP joint of thumb with mild joint space narrowing and marginal osteophytes. Right hand: There are no convincing erosive changes. Joint spaces are preserved. Minimal marginal osteophytes are evident at DIP and PIP joints, most advanced at the fifth PIP joint. XR/XR Hand Bilat min 3v IMPRESSION: Mild osteoarthritis on the left greater than right. No convincing erosive changes. Electronically signed by: Ramon Van MD 03/18/2025 12:29 PM EDT
--- NOTE | ~2025-03-18 | XR_ITS ---
EXAMINATION: XR KNEE, RIGHT CLINICAL INFORMATION: M17.0 - Bilateral primary osteoarthritis of knee COMPARISON: None available. TECHNIQUE: AP and lateral views of the right knee. FINDINGS: There is no joint effusion. Joint spaces are preserved. There is no abnormal soft tissue calcification. There are no osteophytes. XR/XR knee RT 2V IMPRESSION: Unremarkable right knee Electronically signed by: Ramon Van MD 03/18/2025 12:15 PM EDT
== END 2025-03-18 11:41 | disposition home or self-care (01) ==
LOC: HO.XRAY 11:40
PROVIDERS: PCP Internal Medicine; Visit Provider Internal Medicine Rheumatology
DX: M17.0 Bilateral primary osteoarthritis of knee (principal); M05.9 Rheumatoid arthritis with rheumatoid factor, unspecified
CPT/HCPCS: 73130; 73560; 73630

== ENCOUNTER → 2025-03-18 11:45 | Outpatient (BNV) | payer MEDICAID, SELFPAY | PROVIDERS: PCP Internal Medicine; Visit Provider Radiology Diagnostic Radiology | DX: M19.042 Primary osteoarthritis, left hand (principal); M25.741 Osteophyte, right hand; M25.561 Pain in right knee; M15.4 Erosive (osteo)arthritis | CPT/HCPCS: 73130; 73560; 73630 ==

== ENCOUNTER 2025-03-27 13:43 | Outpatient (AMB) | payer MEDICAID, SELFPAY ==
[2025-03-27 13:45] VITALS: BP 120/78; PULSE 67; O2SAT 100; BMI 22.4
--- NOTE | 2025-03-27 13:45 | A.OFFVIS_ITS ---
Vital Signs 03/27/25 13:45 Height 5 ft 4.8 in Weight 133 lb 9.602 oz BMI 22.4 BP 120/78 Blood Pressure Location Rt brachial Position Sitting Pulse 67 Pulse Source Pulse Oximeter Pulse Oximetry (%) 100 Oxygen Delivery Method Room Air Intake Visit Reasons: discuss labs/xray results Intake Note: Patient presents today to discuss labs and xrays. Accompanied by: Self / Same As Patient Allergies No Known Allergies Allergy (Verified 03/18/25 08:30) HPI HPI discuss labs/xray results: Details: Patient presents to review results. No changes since last visit. Morning stiffness is at a few minutes. She is experiencing pain in her feet as soon as she wakes up in the morning. [facility] Medical History Long-term use of immunosuppressant medication Hypovitaminosis D Screening examination for infectious disease Ectopic Depression Fibromyalgia Asthma Rheumatoid arthritis Surgical History H/O laparoscopy Hx of tubal ligation Hx of section Family History Mother Arthritis Diabetes HTN (hypertension) Social History Household Members: Children Housing: Apartment Alcohol intake: never Patient Tobacco Use Status: Current everyday Tobacco user Cigarettes Per Day: 10 Years Smoked: 25 Substance Use Type: Marijuana Physical Exam Vital Signs: Last Vital Signs Pulse 67 03/27/25 13:45 BP 120/78 03/27/25 13:45 Pulse Ox 100 03/27/25 13:45 Oxygen Delivery Method Room Air 03/27/25 13:45 BMI result Body Mass Index 22.4 Const Other: General: Comfortable CVS: RRR Respiratory: clear to auscultation bilaterally. Good respiratory effort Skin: No lesions seen MSK: She has Enoc's nodes present. She also has multiple Heberden nodes. Tender bilateral PIPs and MTPs. She has synovitis of right 2nd and 3rd PIP. Normal range of motion of upper extremities and lower extremities. Assessment & Plan Assessment & Plan (1) Seropositive rheumatoid arthritis: Comment: She has synovitis of right PIPs on exam. We discussed her current workup, which has revealed erosive inflammatory arthritis affecting her feet on x-rays. Laboratory workup has revealed low complements. 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 We discussed next steps in treatment targeting both systemic disease activity in SLE and erosive inflammatory arthritis. We discussed side effects, benefits and drug monitoring on hydroxychloroquine and methotrexate. Patient's questions answered. Code(s): M05.9 - Rheumatoid arthritis with rheumatoid factor, unspecified Category: Medical Plan: G6 PD ordered. When results are back, I will send prescription for hydroxychloroquine 300 mg daily Start methotrexate 12.5 mg once weekly and folic acid 1 mg daily Labs due in 4 weeks for drug monitoring Information on Rhupus, hydroxychloroquine and methotrexate given to patient Continue celecoxib 200 mg twice a day Return to clinic in 3 months (2) Systemic lupus erythematosus: Comment: CHRISTEL 1:80, hypocomplementemia C3 and C4 03/19/2025 and C3 02/10/2020. Code(s): M32.9 - Systemic lupus erythematosus, unspecified Category: Medical Plan: See above (3) Microscopic hematuria: Code(s): R31.29 - Other microscopic hematuria Category: Medical Plan: UA repeated Orders: Orders UA w Microscopic Today R31.29 - Other microscopic hematuria [id number] Dehydrogen Today M05.9 - Rheumatoid arthritis with rheumatoid factor, unspecified, R76.8 - Other specified abnormal immunological findings in serum Medications: New methotrexate sodium Labs due in 4 weeks 12.5 mg (5 x 2.5 mg) PO QWEEK 20 tabs 0RF 4 weeks folic acid 1 mg PO DAILY 30 tabs 11RF Discontinued methotrexate sodium Discontinued Reason: Doctor's Order 15 mg (6 x 2.5 mg) PO QWEEK 72 tabs 0RF M05.9 - Rheumatoid arthritis with rheumatoid factor, unspecified prednisone Discontinued Reason: Doctor's Order orally 2 tablets per x 14 days 1 tablet per day for 14 days 45 tabs 0RF M05.9 - Rheumatoid arthritis with rheumatoid factor, unspecified folic acid Discontinued Reason: Doctor's Order 1 mg PO DAILY 90 tabs 2RF Z79.60 - coil rewind machine operator (current) use of unspecified immunomodulators and immunosuppressants Coding Level of Care Code Est Pt Level 4 (72376) Complex EM visit Add On G2211 Diagnoses Seropositive rheumatoid arthritis M05.9 Systemic lupus erythematosus M32.9 Microscopic hematuria R31.29
--- OUTSIDE RECORDS SUMMARY | 2025-03-27 14:35 | XMS_ITS | Clinical Summary ---
Author Organization [facility] Address [address] [place] [address] Care Team Providers Care Salmon Gillnet Vessel Operator Name Role Phone Bright Zhou AARON Primary Care Provider [phone] Source Comments PLEASE NOTE, if this patient is a minor, it may be UNLAWFUL to discuss sensitive information that is contained in these records (such as FAMILY PLANNING, MENTAL HEALTH or SUBSTANCE ABUSE) with the minor patient's parent or other person without the patient's specific authorization.[facility] Allergies No known active allergies Medications diphenhydrAMINE (BENADRYL) 25 mg tabletIndications :Insomnia, unspecified type Take 1 Tab by mouth every 6 (six) hours as needed for sleep. 30 Tab 1 12/10/2015 Active CALCIUM 600 + D 600 mg(1,500mg) -400 unit tabletIndications :Pain in joint, pain in unspecified joint Take 1 Tab by mouth 2 (two) times daily. 5 12/01/2015 Active cyclobenzaprine (FLEXERIL) 10 mg tabletIndications :Pain in joint, pain in unspecified joint Take 10 mg by mouth once daily as needed. 2 12/01/2015 Active FLUoxetine (PROZAC) 20 mg capsuleIndication s:Anxiety and depression Take 20 mg by mouth every morning. 2 12/01/2015 Active meloxicam (MOBIC) 7.5 mg tabletIndications :Pain in joint, pain in unspecified joint,H/O fibromyalgia Take 7.5 mg by mouth once daily as needed. 2 12/01/2015 Active multivitamin tabletIndications :Pain in joint, pain in unspecified joint Take 1 Tab by mouth once daily. 2 12/01/2015 Active PROAIR HFA 90 mcg/actuation inhalerIndication s:Mild intermittent asthma without complication ([facility]) 2 11/23/2015 Active Active Problems Problem Noted Date Diagnosed Date Cigar smoker unmotivated to quit 12/10/2015 Mild intermittent asthma without complication ([facility]) 12/10/2015 H/O fibromyalgia 12/10/2015 Anxiety and depression 12/10/2015 Family History Medical History Relation Name Comments Mental illness Daughter Hypertension Maternal Grandmother Diabetes Maternal Uncle Mental illness Maternal Uncle Asthma Mother Diabetes Mother Hypertension Mother Arthritis Paternal Grandmother Relation Name Status Comments Daughter Alive Father Alive Maternal Grandmother Maternal Uncle Mother Alive Paternal Grandmother Social History Tobacco Use Types Packs/Day Years Used Date Smoking Tobacco: Every Day Cigarettes Comments:LESS THAN A PACK /D AY . STARTED AT AGE 12 Alcohol Use Standard Drinks/Week Comments No 0 (1 standard drink = 0.6 oz pur e alcohol) Comments No Sex and Gender Information Value Date Recorded Sex Assigned at Not on file Legal Sex Female 8:42 AM PDT Gender Identity Not on file Sexual Orientation Not on file Last Filed Vital Signs Vital Sign Reading Time Taken Comments Blood Pressure 134/80 12/10/2015 12:07 PM EDT Pulse 70 12/10/2015 12:07 PM EDT Temperature 36.8 C (98.2 F) 12/10/2015 12:07 PM EDT Respiratory Rate 17 12/10/2015 12:07 PM EDT Oxygen Saturation - - Inhaled Oxygen Concentration - - Weight 66.7 kg (147 lb) 12/10/2015 12:07 PM EDT Height - - Body Mass Index - - Plan of Treatment Not on file Insurance [place] MEDICAID Care Teams Salmon Gillnet Vessel Operator Relationship Specialty Start Date End Date Bright Zhou FNP [address] [place] [address] PCP - General Family Medicine, PHOTOVOLTAIC PANEL INSTALLER 12/10/15
--- OUTSIDE RECORDS SUMMARY | 2025-03-27 14:35 | XMS_ITS | Clinical Summary ---
Author Organization [facility] Address [address] [place] [address] Phone Care Team Providers Care Buyer Liaison Name Role Phone Arleen Rosas MD Primary Care Provider Social History Tobacco Use Types Packs/Day Years [...] year. Mammo Location: [facility], [address] [place] [address], [address], . -------- FINAL REPORT -------- Dictated By: Vickie Gandara Dictated Date: 07/08/2024 12:52 ET Assigned Physician: Vickie Gandara Reviewed and Electronically Signed By: Vickie Gandara Signed Date: 07/08/2024 12:53 ET Workstation ID: [id number] Transcribed By: Self Edit Transcribed Date: 07/08/2024 [...] year. Mammo Location: [facility], [address] [place] [address], [address], . -------- FINAL REPORT -------- Dictated By: Vickie Gandara Dictated Date: 07/08/2024 12:52 ET Assigned Physician: Vickie Gandara Reviewed and Electronically Signed By: Vickie Gandara Signed Date: 07/08/2024 12:53 ET Workstation ID: [id number] Transcribed By: Self Edit Transcribed Date: 07/08/2024 12:52 ET us Self Referral Sppl IMG BI PROCEDURES Final Resul t from Last 3 Months or Most Recently Relevant to Health Maintenance Insurance MEDICAID - [place] Care Teams Buyer Liaison Relationship Specialty Start Date End Date Arleen Rosas MD [address] [place] [address] [place] [address] PCP - General Internal Medicine 07/08/24
== END 2025-03-27 14:29 | disposition home or self-care (01) ==
LOC: HO.RHES 13:44
PROVIDERS: PCP Internal Medicine; Visit Provider Internal Medicine Rheumatology
DX: M05.9 Rheumatoid arthritis with rheumatoid factor, unspecified (principal); M32.9 Systemic lupus erythematosus, unspecified; R31.29 Other microscopic hematuria
CPT/HCPCS: 99214

== ENCOUNTER → 2025-03-27 13:43 | Outpatient (BNVA) | payer MEDICAID, SELFPAY | PROVIDERS: PCP Internal Medicine; Visit Provider Internal Medicine Rheumatology | DX: Z71.2 Person consulting for explanation of examination or test findings (principal); M05.79 Rheumatoid arthritis with rheumatoid factor of multiple sites without organ or systems involvement; M32.9 Systemic lupus erythematosus, unspecified; R31.29 Other microscopic hematuria; R76.8 Other specified abnormal immunological findings in serum | CPT/HCPCS: 99212 ==

== ENCOUNTER 2025-03-29 07:59 | Outpatient (REF) | payer MEDICAID, SELFPAY ==
[2025-03-29 09:52] LABS: Appearance Urine Clear; Glucose Urine UA Negative (Negative); PH 5.5 (5.0-9.0); Specific Gravity - Urine 1.020 (1.005-1.025); UMIC TRIGGER UA YES
[2025-03-29 11:18] LABS: Protein/Creatinine Ratio, Ur 0.07 (<0.2); Total Protein Urine Random 10 mg/dL (<12)
[2025-04-01 22:03] LABS: Anti Nuclear Antibody Pattern Nuclear, Speckled; Anti Nuclear Antibody Screen POSITIVE (NEGATIVE); Anti Nuclear Antibody Titer 1:80 titer
[2025-04-02 09:53] LABS: DNAds, Crithidia Antibody Negative (Negative)
== END 2025-03-29 08:00 | disposition home or self-care (01) ==
LOC: HO.LAB 07:59
PROVIDERS: PCP Internal Medicine; Visit Provider Internal Medicine Rheumatology
DX: Z01.84 Encounter for antibody response examination (principal); R31.29 Other microscopic hematuria; M32.9 Systemic lupus erythematosus, unspecified
CPT/HCPCS: 36415; 81001; 82570; 82955; 84156; 86038; 86039; 86255

== ENCOUNTER 2025-04-04 09:45 | Outpatient (REF) | payer MEDICAID, SELFPAY ==
--- OUTSIDE RECORDS SUMMARY | 2025-04-04 09:47 | XMS_ITS | Clinical Summary ---
Author Organization [facility] Address [address] [place] [address] Phone Care Team Providers Care Gear Nicker Name Role Phone Arleen Rosas MD Primary Care Provider [phone] Social History Tobacco Use Types Packs/Day Years [...] year. Mammo Location: [facility], [address] [place] [address], [address], . -------- FINAL REPORT -------- Dictated By: Vickie Gandara Dictated Date: 07/08/2024 12:52 ET Assigned Physician: Vickie Gandara Reviewed and Electronically Signed By: Vickie Gandara Signed Date: 07/08/2024 12:53 ET Workstation ID: [id number] Transcribed By: Self Edit Transcribed Date: 07/08/2024 [...] year. Mammo Location: [facility], [address] [place] [address], [address], . -------- FINAL REPORT -------- Dictated By: Vickie Gandara Dictated Date: 07/08/2024 12:52 ET Assigned Physician: Vickie Gandara Reviewed and Electronically Signed By: Vickie Gandara Signed Date: 07/08/2024 12:53 ET Workstation ID: [id number] Transcribed By: Self Edit Transcribed Date: 07/08/2024 12:52 ET us Self Referral Sppl IMG BI PROCEDURES Final Resul t from Last 3 Months or Most Recently Relevant to Health Maintenance Insurance MEDICAID - [place] Care Teams Gear Nicker Relationship Specialty Start Date End Date Arleen Rosas MD [address] [place] [address] [place] [address] PCP - General Internal Medicine 07/08/24
--- OUTSIDE RECORDS SUMMARY | 2025-04-04 09:47 | XMS_ITS | Clinical Summary ---
Author Organization [facility] Address [address] [place] [address] Care Team Providers Care Cigarette Making Machine Operator Name Role Phone Bright Zhou AARON Primary Care Provider [phone] Source Comments PLEASE NOTE, if this patient [...] mcg/actuation inhalerIndication s:Mild intermittent asthma without complication ([facility]) 2 11/23/2015 Active Active Problems Problem Noted [...] Plan of Treatment Not on file Insurance [place] MEDICAID Care Teams Cigarette Making Machine Operator Relationship Specialty Start Date End Date Bright Zhou FNP [address] [place] [address] PCP - General Family Medicine, TOMBSTONE ERECTOR 12/10/15
[2025-04-04 10:45] LABS: Appearance Urine Clear; Glucose Urine UA Negative (Negative); PH 5.5 (5.0-9.0); Specific Gravity - Urine 1.020 (1.005-1.025); UMIC TRIGGER UA YES
== END 2025-04-04 09:46 | disposition home or self-care (01) ==
LOC: HO.LAB 09:45
PROVIDERS: PCP Internal Medicine; Visit Provider Internal Medicine Rheumatology
DX: R35.0 Frequency of micturition (principal)
CPT/HCPCS: 81001; 87086

== ENCOUNTER 2025-04-07 09:27 | Outpatient (REF) | payer MEDICAID, SELFPAY ==
--- OUTSIDE RECORDS SUMMARY | 2025-04-07 10:13 | XMS_ITS | Clinical Summary ---
Author Organization [facility] Address [address] [place] [address] Care Team Providers Care Armature Balancer Name Role Phone Bright Zhou AARON Primary Care Provider [phone] Source Comments PLEASE NOTE, if this patient [...] mcg/actuation inhalerIndication s:Mild intermittent asthma without complication ([facility]) 2 11/23/2015 Active Active Problems Problem Noted [...] Plan of Treatment Not on file Insurance [place] MEDICAID Care Teams Armature Balancer Relationship Specialty Start Date End Date Bright Zhou FNP [address] [place] [address] PCP - General Family Medicine, [facility] OUTREACH WORKER 12/10/15
--- OUTSIDE RECORDS SUMMARY | 2025-04-07 10:13 | XMS_ITS | Clinical Summary ---
Author Organization [facility] Address [address] [place] [address] Phone Care Team Providers Care Club Manager Name Role Phone Arleen Rosas MD Primary Care Provider [phone] Social History Tobacco Use Types Packs/Day Years [...] year. Mammo Location: [facility], [address] [place] [address], [address], . -------- FINAL REPORT -------- Dictated By: Vickie Gandara Dictated Date: 07/08/2024 12:52 ET Assigned Physician: Vickie Gandara Reviewed and Electronically Signed By: Vickie Gandara Signed Date: 07/08/2024 12:53 ET Workstation ID: [id number] Transcribed By: Self Edit Transcribed Date: 07/08/2024 [...] year. Mammo Location: [facility], [address] [place] [address], [address], . -------- FINAL REPORT -------- Dictated By: Vickie Gandara Dictated Date: 07/08/2024 12:52 ET Assigned Physician: Vickie Gandara Reviewed and Electronically Signed By: Vickie Gandara Signed Date: 07/08/2024 12:53 ET Workstation ID: [id number] Transcribed By: Self Edit Transcribed Date: 07/08/2024 12:52 ET us Self Referral Sppl IMG BI PROCEDURES Final Resul t from Last 3 Months or Most Recently Relevant to Health Maintenance Insurance MEDICAID - [place] Care Teams Club Manager Relationship Specialty Start Date End Date Arleen Rosas MD [address] [place] [address] [place] [address] PCP - General Internal Medicine 07/08/24
[2025-04-10 13:29] LABS: Glucose-6-Phosphate Dehydrogen 14.7 U/g Hgb (7.0-20.5)
== END 2025-04-07 09:28 | disposition home or self-care (01) ==
LOC: HO.LAB 09:27
PROVIDERS: PCP Internal Medicine; Visit Provider Internal Medicine Rheumatology
DX: M05.9 Rheumatoid arthritis with rheumatoid factor, unspecified (principal); R76.8 Other specified abnormal immunological findings in serum
CPT/HCPCS: 36415; 82955

== ENCOUNTER 2025-07-02 11:37 | Outpatient (REF) | payer MEDICAID, SELFPAY ==
--- NOTE | ~2025-07-02 | XR_ITS ---
EXAMINATION: XR KNEE, LEFT CLINICAL INFORMATION: injury, r/o fracture COMPARISON: None available. TECHNIQUE: AP lateral and sunrise views of the left knee. FINDINGS: No acute fracture or dislocation. No suprapatellar bursa joint effusion. No lytic or blastic lesions. Mild joint space narrowing involving medial compartment. No soft tissue calcifications. XR/XR knee LT 3V IMPRESSION: Mild medial compartment osteoarthrosis/osteoarthritis. Electronically signed by: Brendan Curry MD 07/02/2025 12:12 PM NIC SHUKLA
== END 2025-07-02 11:38 | disposition home or self-care (01) ==
LOC: HO.XRAY 11:37
PROVIDERS: PCP Internal Medicine; Visit Provider Internal Medicine
DX: S89.92XA Unspecified injury of left lower leg, initial encounter (principal)
CPT/HCPCS: 73562

== ENCOUNTER → 2025-07-02 11:58 | Outpatient (BNV) | payer MEDICAID, SELFPAY | PROVIDERS: PCP Internal Medicine; Visit Provider Radiology Diagnostic Radiology | DX: M17.12 Unilateral primary osteoarthritis, left knee (principal) | CPT/HCPCS: 73562 ==

== ENCOUNTER 2025-07-09 09:37 | Outpatient (REF) | payer MEDICAID, SELFPAY ==
--- OUTSIDE RECORDS SUMMARY | 2025-07-09 08:30 | XMS_ITS | Encounter Summary ---
Author Organization [facility] Address [address] [place] [address] Care Team Providers Care Medical Technical Writer Name Role Phone Arleen Rosas MD Primary Care Provider [phone] Reason for Referral * Imaging (Routine) - Authorized Specialty Diagnoses / Procedures Referred By Contac t Referred To Contact Radiology Diagnoses Encounter for screening mammogram for breast cancer Procedures MG Mammo Digital Screening w Radha bilat Spp, Self Referral [facility] Referral ID Status Reason Start Date Expiration Date V isits Requested Visits Authorized [id number] Authorized 06/11/2025 06/11/2026 1 1 * Imaging (Routine) - Authorized Specialty Diagnoses / Procedures Referred By Contac t Referred To Contact Radiology Diagnoses Encounter for screening mammogram for breast cancer Procedures MG Mammo Digital Screening w Radha bilat Sppl, Self Referral [facility] Referral ID Status Reason Start Date Expiration Date V isits Requested Visits Authorized [id number] Authorized 06/11/2025 06/11/2026 1 1 Reason for Visit * Imaging (Routine) - Authorized Specialty Diagnoses / Procedures Referred By Contac t Referred To Contact Radiology Diagnoses Encounter for screening mammogram for breast cancer Procedures MG Mammo Digital Screening w Radha bilat Sppl, Self Referral [facility] Referral ID Status Reason Start Date Expiration Date V isits Requested Visits Authorized [id number] Authorized 06/11/2025 06/11/2026 1 1 Encounter Details Date Type Department Care Team (Latest Contact Info) Description 07/09/2025 8:30 AM EST Hospital Encounter [facility] [address] [address] Encounter for screening mammogram for breast cancer Social History Tobacco Use Types Packs/Day Years Used Date Smoking Tobacco: Never Assessed Comments No Sex and Gender Information Value Date Recorded Sex Assigned at Not on file Legal Sex Female 12:47 PM EST Gender Identity Not on file Sexual Orientation Not on file documented as of this encounter Plan of Treatment Not on file documented as of this encounter Procedures Procedure Name Priority Date/Time Associated Diagnosis Comments MG MAMMO DIGITAL SCREENING W RADHA BILAT Routine 07/09/2025 9:26 AM EST Encounter for screening mammogram for breast cancer documented in this encounter Results * MG Mammo Digital Screening w Radha bilat (07/09/2025 9:26 AM EST) Anatomical Region Laterality Modality Breast Bilateral Mammography 07/09/2025 9:59 AM EST Impressions 07/09/2025 10:19 AM EST No mammographic evidence of malignancy. No suspicious interval change. A negative mammogram in the presence of a clinically suspicious palpable abnormality does not preclude the possibility of malignancy or alter the indications for biopsy. ASSESSMENT: BI-RADS 1: NEGATIVE RECOMMENDATION(S): 1: Routine screening mammogram BILATERAL in 1 year. [facility] location[facility] [address], [address] -------- FINAL REPORT -------- Dictated By: Steven Juarez Dictated Date: 07/09/2025 09:59 ET Assigned Physician: Steven Juarez Reviewed and Electronically Signed By: Steven Juarez Signed Date: 07/09/2025 10:19 ET Workstation ID: [id number] Transcribed By: Self Edit Transcribed Date: 07/09/2025 09:59 ET Narrative 07/09/2025 10:19 AM EST EXAM: SCREENING MAMMOGRAPHY, BILATERAL HISTORY: SCREENING. No additional history. COMPARISON: 07/08/24, 07/05/23, 03/12/22, 12/04/20 TECHNIQUE: Synthesized CC and MLO projections of each breast. Tomosynthesis of each breast in the CC and MLO projections. ADDITIONAL IMAGING: None Computer-aided detection was employed with the [employer] Single[employer] AI 3-D. TISSUE DENSITY: There are scattered areas of fibroglandular density. (BI-RADS category B) FINDINGS: RIGHT BREAST: No suspicious mass. No suspicious calcification. No distortion. No additional suspicious right breast findings LEFT BREAST: No suspicious mass. No suspicious calcification. No distortion. No additional suspicious left breast findings Procedure Note Steven Juarez MD - 07/09/2025 EXAM: SCREENING MAMMOGRAPHY, BILATERAL HISTORY: SCREENING. No additional history. COMPARISON: 07/08/24, 07/05/23, 03/12/22, 12/04/20 TECHNIQUE: Synthesized CC and MLO projections of each breast.Tomosynthesis of each breast in the CC and MLO projections. ADDITIONAL IMAGING: None Computer-aided detection was employed with the [email or web address] AI 3-D. TISSUE DENSITY: There are scattered areas of fibroglandular density.(BI-RADS category B) FINDINGS: RIGHT BREAST: No suspicious mass. No suspicious calcification. No distortion. Noadditional suspicious right breast findings LEFT BREAST: No suspicious mass. No suspicious calcification. No distortion. Noadditional suspicious left breast findings IMPRESSION: No mammographic evidence of malignancy. No suspicious interval change. A negative mammogram in the presence of a clinically suspicious palpableabnormality does not preclude the possibility of malignancy or alter theindications for biopsy. ASSESSMENT: BI-RADS 1: NEGATIVE RECOMMENDATION(S): 1: Routine screening mammogram BILATERAL in 1 year. [facility] location[facility] [address], [address] -------- FINAL REPORT -------- Dictated By: Steven Juarez Dictated Date: 07/09/2025 09:59 ET Assigned Physician: Steven Juarez Reviewed and Electronically Signed By: Steven Juarez Signed Date: 07/09/2025 10:19 ET Workstation ID: [id number] Transcribed By: Self Edit Transcribed Date: 07/09/2025 09:59 ET us Self Referral Sppl IMG BI PROCEDURES Final Resul t documented in this encounter Visit Diagnoses Diagnosis Encounter for screening mammogram for breast cancer documented in this encounter Care Teams Medical Technical Writer Relationship Specialty Start Date End Date Arleen Rosas MD [address] [place] [address] [place] [address] PCP - General Internal Medicine 07/08/24 documented as of this encounter
--- OUTSIDE RECORDS SUMMARY | 2025-07-09 10:59 | XMS_ITS | Clinical Summary ---
Author Organization [facility] Address [address] [place] [address] Phone Care Team Providers Care Oral Therapist Name Role Phone Arleen Rosas MD Primary Care Provider [phone] Encounters Date Type Department Care Team Description 07/09/2025 8:30 AM EST Hospital Encounter [facility] [address] [address] Encounter for screening mammogram for breast cancer from Last 3 Months Social History Tobacco Use Types Packs/Day Years [...] Health Maintenance Due Date Last Done Comments Colorectal Cancer Screening: Colonoscopy 1973 DTaP,Tdap,and Td Vaccines (1 - Tdap) 1992 Hepatitis B Vaccines (1 of 3 - 19+ 3-dose series) 1992 Pneumococcal Vaccine: 50+ Years (1 of 2 - PCV) 1992 Cervical Cancer Screening: Pap Smear 1994 HIV Screening 07/12/2022 Hepatitis C Screening 07/12/2022 Social Influencers of Health Screening 07/12/2022 RSV Immunization Adult Patients (1 - Risk 50-74 years 1-dose series) 2023 Zoster Vaccines (1 of 2) 2023 Depression Screening 08/14/2024 COVID-19 Vaccine (1 - season) 2025 Influenza Vaccine (#1) 2025 Breast Cancer Screening 07/08/2026 07/09/20, 07/08/2024, 07/05/2023, Additional history exists HIB Vaccines Aged Out [...] for breast cancer from Last 3 Months Results * MG Mammo Digital Screening w [...] year. Mammography location: [facility] at [address], [address] -------- FINAL REPORT -------- Dictated By: Steven Jaurez Dictated Date: 07/09/2025 09:59 ET Assigned Physician: Steven Juarez Reviewed and Electronically Signed By: Steven Juarez Signed Date: 07/09/2025 10:19 ET Workstation ID: [id number] Transcribed By: Self Edit Transcribed Date: 07/09/2025 09:59 ET Narrative 07/09/2025 10:19 AM EST EXAM: SCREENING MAMMOGRAPHY, BILATERAL HISTORY: SCREENING. No additional history. COMPARISON: 07/08/24, 07/05/23, 03/12/22, 12/04/20 TECHNIQUE: Synthesized CC and MLO projections of each breast. Tomosynthesis of each breast in the CC and MLO projections. ADDITIONAL IMAGING: None Computer-aided detection was employed with the hi5 AI 3-D. TISSUE DENSITY: There are scattered [...] None Computer-aided detection was employed with the hi5 AI 3-D. TISSUE DENSITY: There are scattered [...] year. Mamm[facility] location: [facility] [address] [place], [address] -------- FINAL REPORT -------- Dictated By: Steven Juarez Dictated Date: 07/09/2025 09:59 ET Assigned Physician: Steven Juarez Reviewed and Electronically Signed By: Steven Juarez Signed Date: 07/09/2025 10:19 ET Workstation ID: [id number] Transcribed By: Self Edit Transcribed Date: 07/09/2025 09:59 ET us Self Referral Sppl IMG BI PROCEDURES Final Resul t from Last 3 Months Insurance MEDICAID - [place] Care Teams Oral Therapist Relationship Specialty Start Date End Date Arleen Rosas MD [address] [place] [address] [place] [address] PCP - General Internal Medicine 07/08/24
[2025-07-09 13:23] LABS: MANUAL DIFF FLAG NO
[2025-07-09 13:24] LABS: Hematocrit 47.3 % (37.0-47.0); Hemoglobin 15.3 g/dl (12.0-16.0); Imm Gran Abs Auto 0.03 X10*3/uL (0.00-0.03); Imm Gran Pct Auto 0.4 % (0.0-0.4); Lymphocytes Absolute Auto 3.0 X10*3/uL (1.2-4.9); Mean Corpuscular HGB Conc 32.3 g/dl (31.0-35.0); Mean Corpuscular Hemoglobin 28.9 pg (27.0-33.0); Mean Corpuscular Volume 89.2 fL (80.0-98.0); NRBC Abs Auto 0.000 X10*3/uL (0.0-0.012); NRBC Pct Auto 0.0 /100WBC (0.0-0.2); Platelet Count 312 X10*3/uL (160-400); Red Blood Count 5.30 X10*6/uL (4.20-5.50); White Blood Count 8.4 X10*3/uL (4.8-10.8)
[2025-07-09 15:04] LABS: Alanine Aminotransferase 18 U/L (0-31); Aspartate Amino Transferase 25 U/L (5-31); Estimated Glomerular Filt Rate > 60
== END 2025-07-09 09:38 | disposition home or self-care (01) ==
LOC: HO.HKASLDS 09:37
PROVIDERS: PCP Internal Medicine; Visit Provider Internal Medicine Rheumatology
DX: Z79.899 Other long term (current) drug therapy (principal)
CPT/HCPCS: 36415; 82565; 84450; 84460; 85025; 85652; 86140